=== PATIENT | female | born 1950 | race Caucasian/White ===

== ENCOUNTER 2018-08-03 23:15 | Inpatient (IN) | payer MEDICARE, MEDICAID ==
--- NOTE | 2018-08-04 00:26 | ED ---
Lower Extremity - HPI Summary HPI Summary: This patient is a 67 year old F presenting to [facility] accompanied by a woman with a chief complaint of worsening, bilateral, chronic LE edema since earlier today. Patient reports SOB with minimal exertion, purple lips, and weakness. Patient denies CP, abd pain, cough, fever, or chills.Pt uses a cane to ambulate normally, but it was more difficult today. The pt does not use oxygen at home. Pt went to a health insurance specialist a few years ago that showed relatively normal results. Pt does not take medication for her diabetes. PMHX leg blood clots, HTN , Diabetes. No PMHx asthma, emphysema. No SHx tobacco use. FHX leg tumors and severe LE edema. RX Coumadin. 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 Onset/Duration: Weeks Pain Intensity: 0 Pain Scale Used: 0-10 Numeric Timing: Constant Associated Signs And Symptoms: Positive: Swelling, Weakness Aggravating Factor(s): Ambulation, Movement - Allergies/Home Medications Allergies/Adverse Reactions: Allergies Allergy/AdvReac Type Severity Reaction Status Date / Time No Known Allergies Allergy Verified 08/03/18 23:21 PMH/Surg Hx/FS Hx/Imm Hx Endocrine/Hematology History: Reports: Hx Diabetes Cardiovascular History: Reports: Hx Hypertension Denies: Hx Pacemaker/ICD Respiratory History: Denies: Hx Asthma Musculoskeletal History: Denies: Hx Osteoporosis Sensory History: Denies: Hx Hearing Aid Psychiatric History: Denies: Hx Panic Disorder - Cancer History Hx Chemotherapy: No Hx Radiation Therapy: No - Surgical History Surgery Procedure, Year, and Place: PARATHYROIDECTOMY/T&A Infectious Disease History: No Infectious Disease History: Denies: Traveled Outside the [place] in Last 30 Days - Family History Known Family History: Positive: Diabetes - Social History Alcohol Use: None Substance Use Type: Reports: None Smoking Status (MU): Never Smoked Tobacco Review of Systems Negative: Fever, Chills Negative: Chest Pain Positive: Shortness Of Breath. Negative: Cough Negative: Abdominal Pain Positive: Edema - LE Positive: Other - purple lips Positive: Weakness All Other Systems Reviewed And Are Negative: Yes Physical Exam - Summary Physical Exam Summary: Appearance: The patient is morbidly obese, lying on the bed Skin: Warm, dry. Chronic lymphedema of both legs, without signs of cellulitis Eyes: sclera anicteric, no conjunctival pallor ENT: mucous membranes moist, pharynx appears normal Neck: Supple, nontender Respiratory: Clear to auscultation, mild respiratory distress with tachypnea. Cardiovascular: Normal S1, S2. No murmurs. Normal distal pulses in tibial and radial bilaterally. Abdomen: Soft, nontender, normal active bowel sounds present Musculoskeletal: Normal, Strength/ROM Intact Neurological: A&Ox3, awake and alert, mentation is normal, speech is fluent and appropriate Psychiatric: affect is normal, does not appear anxious or depressed Triage Information Reviewed: Yes Vital Signs On Initial Exam: Initial Vitals Temp Pulse Resp BP Pulse Ox 98.5 F 111 32 122/57 88 08/03/18 23:18 08/03/18 23:18 08/03/18 23:18 08/03/18 23:18 08/03/18 23:18 Vital Signs Reviewed: Yes Diagnostics - Vital Signs Vital Signs Temp Pulse Resp BP Pulse Ox 08/04/18 00:10 98 26 122/68 94 08/03/18 23:18 98.5 F 111 32 122/57 88 - Laboratory Result Diagrams: 08/04/18 00:22 08/04/18 00:22 Lab Statement: Any lab studies that have been ordered have been reviewed, and results considered in the medical decision making process. - Radiology CXR Radiology Interpretation Completed By: ED Physician Summary of Radiographic Findings: small bilateral pleural effusions, minor vascular congestion, pending official report - EKG 00:32 Cardiac Rate: NL - 85 EKG Rhythm: Sinus Rhythm Summary of EKG Findings: P waves, QRS complex, and T waves are within normal limits, T waves and intervals are normal, no ischemic changes Lower Extremity Course/Dx - Course Course Of Treatment: This patient is a 67 year old F presenting to [facility] accompanied by a woman with a chief complaint of worsening, bilateral, chronic LE edema since earlier today. Patient reports SOB with minimal exertion, purple lips, and weakness. Patient denies CP, abd pain, cough, fever, or chills. An EKG reveals NSR at 85 BPM, P waves, QRS complex, and T waves are within normal limits, T waves and intervals are normal, no ischemic changes. This is a normal EKG. CXR reveals, per ED physician, small bilateral pleural effusions, minor vascular congestion, pending official report. Test results with no significant abnormalities except for lactic acid 2.7 H. We discussed patient care with Dr. Haile and they recommended admission. Patient will be admitted. The patient is agreeable with this plan. - Diagnoses Provider Diagnoses: CHF (congestive heart failure) - Physician Notifications Discussed Care Of Patient With: Sarah Haile Time Discussed With Above Provider: 01:01 Instructed by Provider To: Admit As Inpatient Discharge - Sign-Out/Discharge Documenting (check all that apply): Patient Departure - admission - Discharge Plan Condition: Stable Disposition: ADMITTED TO [facility] - Billing Disposition and Condition Condition: STABLE Disposition: Admitted to [facility] - Attestation Statements Document Initiated by Josafat: Yes Documenting Scribe: Arslan Gupta Provider For Whom Josafat is Documenting (Include Credential): Filemon Us MD Scribe Attestation: Arslan Lima scribed for Filemon Us MD on 08/04/18 at 0356. Scribe Documentation Reviewed: Yes Provider Attestation: The documentation as recorded by the Arslan giron accurately reflects the service I personally performed and the decisions made by Filemon smith MD Status of Scribe Document: Viewed
[2018-08-04 00:45] LABS: ABS Basophils 0.1 10^3/ul (0-0.2); ABS Eosinophils 0 10^3/ul (0-0.6); ABS Lymphocytes 0.8 10^3/ul (1.0-4.8); ABS Monocytes 0.6 10^3/ul (0-0.8); ABS Neutrophils 9.8 10^3/ul (1.5-7.7); ABS Nucleated RBC 0 10^3/ul; Eosinophil % 0.1 %; Hematocrit 39 % (35-47); Hemoglobin 12.8 g/dl (12.0-16.0); Lymphocyte % 6.9 %; Mean Corpuscular HGB Conc 33 g/dl (31-36); Mean Corpuscular Hemoglobin 28 pg (27-31); Mean Corpuscular Volume 84 fL (80-97); Mean Platelet Volume 7.6 fL (7.4-10.4); Nucleated Red Blood Cells % 0.3; Platelet Count 311 10^3/ul (150-450); Red Blood Count 4.61 10^6/ul (4.00-5.40); Red Cell Distribution Width 17 % (10.5-15); White Blood Count 11.3 10^3/ul (3.5-10.8)
[2018-08-04 00:47] LABS: INR 2.22 (0.77-1.02)
[2018-08-04 00:56] LABS: EGFR Non-African American 52.4 (>60)
[2018-08-04] MEDS ORDERED: Senna TAB PO PRN (01:34)
[2018-08-04] MEDS ORDERED: Al Hydrox/Mg Hydrox/Simet LIQ* 30 ML UDC PO PRN (01:34)
[2018-08-04] MEDS ORDERED: Ondansetron INJ* 2 MG/ML VIAL IV PRN (01:34)
[2018-08-04] MEDS ORDERED: Docusate CAP* 100 MG PO PRN (01:34)
[2018-08-04] MEDS ORDERED: Acetaminophen TAB* 325 MG PO PRN (01:34)
[2018-08-04] MEDS ORDERED: Furosemide IV* 10 MG/ML VIAL (40 MG) IV ONE ×2 (01:37→13:35)
[2018-08-04] MEDS ORDERED: Dextrose 50% Syringe 50 ML* 25 GM/50 ML SYRINGE IV PUSH PRN (01:39)
[2018-08-04] MEDS: Insulin LISPRO* 1 UNITS UNIT SUBCUT SCH ×4 (08:03→17:47)
[2018-08-04] MEDS ORDERED: Metoprolol Tartrate TAB* 25 MG PO SCH (09:00)
[2018-08-04] MEDS ORDERED: Metoprolol Succinate XL TAB* 25 MG PO ONE (09:47)
--- NOTE | 2018-08-04 09:51 | HP ---
CC: Dr. Nicolas Jolly.* HISTORY AND PHYSICAL: DATE OF ADMISSION: 08/04/18. TIME OF EVALUATION: 0100. PRIMARY CARE PHYSICIAN: Dr. Nicolas Jolly CHIEF COMPLAINT: Shortness of breath and difficulty ambulating. HISTORY OF PRESENT ILLNESS: This is a 67-year-old female with a past medical history of morbid obesity, chronic lower extremity lymphedema, who presents to the emergency room with difficulty ambulating and worsening shortness of breath. The patient states she normally ambulates with a cane. Today, she had significant difficulty ambulating due to weakness and shortness of breath. She has had dyspnea on exertion for several months. It seems to be getting worse. Her [id number] lives with her and helps take care of her and she has noticed that her shortness of breath seems to have gotten worse especially today. She noticed that her lips were blue. It seems that she can only walk 20 feet before she gets short of breath. She denies any shortness of breath at rest. She denies any coughing, no chest pain. She has difficulty lying flat. She states she is not on oxygen at home. No nausea, vomiting, diarrhea. No chest pain. No fevers or chills. No recent changes in her medications. She states she has gained about 20 pounds over the past year. Otherwise, review of systems is negative. In the emergency room, the patient had labs, imaging and was referred to the hospitalist service for further evaluation. PAST MEDICAL HISTORY: 1. Morbid obesity. 2. Chronic lower extremity lymphedema. 3. Diabetes. 4. History of DVT. 5. Hypertension. 6. Hypothyroidism 7. Hyperlipidemia. 8. Schizophrenia. MEDICATIONS: The patient is not sure what she takes; what she does know is: 1. Coumadin 5 mg p.o. daily. 2. Risperidone 3 mg at bedtime. 3. Synthroid. 4. Atorvastatin. 5. Metoprolol. ALLERGIES: No known drug allergies. FAMILY HISTORY: Her mother is alive, 96, resides at [facility]. Her father at age 86. SOCIAL HISTORY: The patient lives with her [id number], Mansoor Ac, phone number [phone]. She is also her healthcare proxy who helps take care of her. No history of smoking, alcohol, or illicit drug use. 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 Code status is full code. REVIEW OF SYSTEMS: A 14-point review of systems as mentioned in the HPI, otherwise negative. PHYSICAL EXAMINATION GENERAL: No acute distress, some intermittent conversational dyspnea. Sister- in- law is at the bedside. VITAL SIGNS: Temp is 98.5, pulse rate 98, respiratory rate 26, oxygen saturation 94% on 3 L, blood pressure 122/68. HEENT: Head normocephalic. Pupils are equal and reactive, anicteric. Oropharynx: Mucous membranes are moist. NECK: Supple. No lymphadenopathy. RESPIRATORY: Diminished breath sounds. Bilateral expiratory wheezing, tachypnea with some mild increased work of breathing. CARDIAC: Tachycardia with soft systolic murmur heard throughout. ABDOMEN: Morbidly obese, nontender. EXTREMITIES: She has chronic lower extremity lymphedema, distant pulses. NEUROLOGIC: Alert and oriented x3. No gross focal neurologic deficits. DIAGNOSTIC STUDIES/LAB DATA: White count 11.3, hemoglobin 12.8, hematocrit 39 , platelets 311. INR is 2.22. D-dimer is 281. Sodium 135, potassium 3.7, chloride 101, bicarb 25, BUN 19, creatinine 1.05, glucose 169. Lactic acid 2.7. Troponin is 0.01. RADIOGRAPHIC DATA: EKG shows normal sinus rhythm with PVC present. Chest x-ray , no comparison but appears to be increased prominent interstitial edema. ASSESSMENT: A 67-year-old female with a past medical history of diabetes, morbid obesity, chronic lower extremity edema who has had difficulty ambulating and worsening shortness of breath. 1. Shortness of breath. Assessment: I suspect the patient has acute decompensated congestive heart failure. She states she had an echo done in the spring, but was not sure what the report showed. Chest x-ray is concerning for congestive heart failure and does have some wheezing on exam. I do not think this is chronic obstructive pulmonary disease. Plan: We will give her a dose of Lasix; trend her troponin; check her lipid panel; continue her beta judit, I do not know the dose, will start on a low dose; follow up on her med rec and monitor her I's and O's and daily weights and see if she clinically improves with her diuresis. 2. Difficulty ambulating. Assessment: I suspect this is multifactorial with her dyspnea, her morbid obesity, and her chronic lower extremity edema. I talked with her about her home environment. It sounds like they want to get more services to come into the home, VNS versus possible assisted living, although they are concerned they cannot afford it. Plan: We will put in PT consult. She may need to use a walker instead of a cane and put in social work to help with additional services in the house. 3. Chronic medical problems. History of deep venous thrombosis, on Coumadin. She is therapeutic. We will resume her Coumadin. I do not think her shortness of breath is from a pulmonary embolism as she is therapeutic and her D-dimer is minimally elevated. If her further workup is unremarkable or suggestive of pulmonary embolism, I would recommend getting a CT, at this time, it does not appear indicated. 4. History of schizophrenia. Continue risperidone. 5. Need to get her med rec and order her medications accordingly. 6. Fluids, electrolytes, nutrition: Diabetic diet. We will place her on a lispro sliding scale and check her hemoglobin A1c. 7. DVT prophylaxis: The patient scores high risk. She is on Coumadin. 8. Code status: Full code. PATIENT TIME: Greater than 50 minutes spent doing the history and physical, more than half the time spent in direct patient contact. [id number]/CPS #: [id number] MTDD
[2018-08-04] MEDS: Levothyroxine TAB* 100 MCG TAB PO SCH (10:34)
--- NOTE | 2018-08-04 14:20 | PN ---
Subjective Date of Service: 08/04/18 Interval History: Pt had been SOB for several months now. Remembers that she was placed on Lasix, but her prescription "run out" about 2 months ago. Lives with a roommate. Has had problems with ambulation due to leg edema and CRESPO Objective Active Medications: Acetaminophen (Tylenol Tab*) 650 mg PO Q4H PRN PRN Reason: FEVER/PAIN Last Admin: 08/04/18 11:46 Dose: 650 mg Al Hydrox/Mg Hydrox/Simethicone (Maalox Plus*) 30 ml PO Q6H PRN PRN Reason: INDIGESTION Atorvastatin Calcium (Lipitor*) 40 mg PO QPM [facility] Dextrose (D50w Syringe 50 Ml*) 12.5 gm IV PUSH .FOR FS < 60 - SS PRN PRN Reason: FS < 60 Docusate Sodium (Colace Cap*) 100 mg PO BID PRN PRN Reason: CONSTIPATION Furosemide (Lasix Iv*) 60 mg IV 0800,1700 [facility] Insulin Human Lispro (Humalog*) 0 units SUBCUT AC [facility]; Protocol Last Admin: 08/04/18 13:00 Dose: 5 units Levothyroxine Sodium (Synthroid Tab*) 100 mcg PO DAILY [facility] Last Admin: 08/04/18 10:34 Dose: 100 mcg Metoprolol Succinate (Toprol Xl Tab*) 50 mg PO DAILY [facility] Nystatin (Nystatin Cream*) 1 applic TOPICAL BID PRN PRN Reason: RASH Ondansetron HCl (Zofran Inj*) 4 mg IV Q4H PRN PRN Reason: NAUSEA/VOMITING Risperidone (Risperdal*) 3 mg PO BEDTIME [facility] Senna (Senokot Tab*) 1 tab PO BID PRN PRN Reason: CONSTIPATION Warfarin Sodium (Coumadin Tab(*)) 2.5 mg PO 1700 [facility]; Protocol Vital Signs - 8 hr 08/04/18 08/04/18 08/04/18 07:30 08:00 08:01 Temperature 98.6 F Pulse Rate 76 85 Respiratory 16 20 Rate Blood Pressure 144/61 (mmHg) O2 Sat by Pulse 95 92 Oximetry 08/04/18 11:31 Temperature 100.7 F Pulse Rate 84 Respiratory 20 Rate Blood Pressure 158/81 (mmHg) O2 Sat by Pulse 92 Oximetry Oxygen Devices in Use Now: None Appearance: 67 yo morbitly obese F in nAD, AAOx3 Eyes: No Scleral Icterus, PERRLA Ears/Nose/Mouth/Throat: NL Teeth, Lips, Gums, Mucous Membranes Moist Neck: NL Appearance and Movements; NL JVP, Trachea Midline Respiratory: Symmetrical Chest Expansion and Respiratory Effort, - - faint bibasiliar crackles Cardiovascular: NL Sounds; No Murmurs; No JVD, RRR Abdominal: NL Sounds; No Tenderness; No Distention Lymphatic: No Cervical Adenopathy Extremities: No Clubbing, Cyanosis, - - +3 pedal and entire LE's edema Skin: No Rash or Ulcers, No Nodules or Sclerosis Neurological: Alert and Oriented x 3, NL Muscle Strength and Tone Result Diagrams: 08/04/18 00:22 08/04/18 00:22 Assess/Plan/Problems-Billing Assessment: 67 yo F with BMI 54, HTN, DVT (on Couamdin) and h/o leg edema presents with SOB and worsening leg swelling. - Patient Problems (1) Acute diastolic CHF (congestive heart failure) Comment: cont Lasix IV Echo pending cont daily weights (2) DM2 (diabetes mellitus, type 2) Comment: diet controlled (3) Hypothyroidism Comment: cont current synthroid. TSH 1.4 (4) Dyslipidemia Comment: cont lipitor (5) DVT prophylaxis Comment: INR 2.2 cont coumadin for h/o DVT (6) Schizo affective schizophrenia Comment: controled on Risperdal (7) Fever Comment: Temp 100.7 apart for SOB and edema , no other complaints. Check UA and Flu test Status and Disposition: inpatient, deconditioned. PT/OT ongoing, may need STR
[2018-08-04 14:31] LABS: Urine Appearance Clear; Urine Blood Negative (Negative); Urine Color Straw; Urine Ketones Negative (Negative); Urine Protein Negative (Negative); Urine Specific Gravity 1.005 (1.010-1.030); Urine Urobilinogen Negative (Negative)
--- NOTE | 2018-08-04 14:52 | ECHO ---
Patient: JEANNETTE WOODS [facility] Rec#: [id number] : 1950 Date: 08/04/2018 Age: 67y Height: 162.6 cm / 64.0 in Weight: 145.2 kg / 320.0 lbs Sex: F BSA: 2.4 Room[facility] Admit Date#: 08/04/2018 Type: Inpatient Referring: Sarah Haile Reading: Ryan Cristina DO Clamp Jig Assembler: Pratibha Staley RN RDCS CC: Nicolas Jolly MD Transthoracic Echocardiogram Indication: Shortness of breath BP: 141/65 HR: 82 Rhythm: NSR Findings History: HTN, DM, lower extremity edema, morbid obesity Technical Comments: The study quality is fair. The study is technically limited due to poor parasternal windows. The study is technically limited due to patient body habitus. The patient did not want Definity used for image enhancement. Left Ventricle: The left ventricular chamber size is normal. There is no left ventricular hypertrophy. There is normal left ventricular systolic function. The estimated ejection fraction is 60-65%. The assessment of diastolic function is non-diagnostic., discrepant data Left Atrium: The left atrium is mildly dilated. Right Ventricle: The right ventricle is mildly dilated. The right ventricular global systolic function is mildly reduced. Right Atrium: The right atrium is mildly dilated. Aortic Valve: The aortic valve structure is not well visualized. The aortic valve leaflets are mildly thickened. There is no evidence of aortic regurgitation. There is no evidence of aortic stenosis. Mitral Valve: The mitral valve leaflets are mildly thickened. There is a trace of mitral regurgitation. There is no evidence of mitral stenosis. Tricuspid Valve: The tricuspid valve structure is not well visualized. The tricuspid valve leaflets are normal. There is trace tricuspid regurgitation. Unable to estimate the right ventricular systolic pressure. There is no tricuspid stenosis. Pulmonic Valve: The pulmonic valve structure is not well visualized. Pericardium: There is no significant pericardial effusion. Aorta: The ascending aorta is not well visualized. The aortic arch is not well visualized. The aortic root is normal in size. Pulmonary Artery: The main pulmonary artery is not well visualized. Venous: The venous system is not well visualized. The inferior vena cava is not visualized. Conclusions The left ventricular chamber size is normal. There is normal left ventricular systolic function. There is no left ventricular hypertrophy. The estimated ejection fraction is 60-65%. The left atrium is mildly dilated. The right ventricle is mildly dilated. The right ventricular global systolic function is mildly reduced. There is trace tricuspid regurgitation. Unable to estimate the right ventricular systolic pressure. The study is technically limited due to patient body habitus. The patient did not want Definity used for image enhancement. There is abnormal septal "bounce" - consider conduction system disease vs. RV pressure/volume overload Compared to prior study from 03/2018, RV now appears mildly dilated/dysfunctional Measurements Name Value Normal Range RVDdMajor (2D) 3.5 cm (2.2 - 4.4) RAd ISD 4CH 5 cm (3.4 - 4.9) RA (A4C)W 4.1 cm (2.9 - 4.6) IVSd (2D) 1 cm (0.6 - 1) LVPWd (2D) 1 cm (0.6 - 1) LVIDd (2D) 5.3 cm (3.6 - 5.4) LVIDs (2D) 4.2 cm - LV FS (2D) 21 % (25 - 45) Aortic Annulus 2.2 cm (1.4 - 2.6) Ao root diameter (2D) 3.3 cm (2.1 - 3.5) LA dimension (AP) 2D 5.5 cm (2.3 - 3.8) LAd ISD 4CH 5.9 cm (2.9 - 5.3) LA ISD 4CH W 3.7 cm (2.5 - 4.5) Name Value Normal Range LA ESV SP 4CH (A/L) 45 ml - LA ESV SP 2CH (A/L) 58 ml - LA ESV BP (A/L) 52 ml - LA ESV BP (A/L) index 21.6 ml/m2 - LA ESV SP 4CH (MOD) 43 ml - LA ESV SP 2CH (MOD) 56 ml - Name Value Normal Range MV E-wave Vmax 0.59 m/sec - MV deceleration time 275 msec - MV A-wave Vmax 0.81 m/sec - MV E:A ratio 0.73 ratio - LV septal e' Vmax 0.11 m/sec - LV lateral e' Vmax 0.13 m/sec - LV E:e' septal ratio 5.4 ratio - LV E:e' lateral ratio 4.5 ratio - Name Value Normal Range AV Vmax 2 m/sec - AV VTI 39.4 cm - AV peak gradient 15.5 mmHg - AV mean gradient 10 mmHg - LVOT diameter 2.2 cm - LVOT Vmax 1.4 m/sec - LVOT VTI 28.4 cm - LVOT peak gradient 8 mmHg - LVOT mean gradient 5 mmHg - CONSTANTINE (continuity Vmax) 2.7 cm2 - CONSTANTINE (continuity VTI) 2.7 cm2 - Name Value Normal Range PV Vmax 0.94 m/sec -
[2018-08-04] MEDS ORDERED: Warfarin TAB(*) 5 MG PO SCH (17:00)
[2018-08-04] MEDS ORDERED: Warfarin TAB(*) 2.5 MG PO SCH (17:00)
[2018-08-04] MEDS: Furosemide IV* 10 MG/ML 10 ML VIAL (100 MG) IV SCH (17:46)
[2018-08-04] MEDS: Atorvastatin* 40 MG TAB PO SCH (17:47)
[2018-08-04] MEDS: risperiDONE TAB* 3 MG PO SCH (20:32)
[2018-08-04] MEDS: Nystatin CREAM* 30 GM TOPICAL PRN (20:37)
[2018-08-05 06:21] LABS: INR 1.82 (0.77-1.02)
[2018-08-05] MEDS: Metoprolol Succinate XL TAB* 50 MG PO SCH (07:45)
[2018-08-05] MEDS: Furosemide IV* 10 MG/ML 10 ML VIAL (100 MG) IV SCH ×2 (07:45→17:49)
[2018-08-05] MEDS: Levothyroxine TAB* 100 MCG TAB PO SCH (07:45)
[2018-08-05 08:39] LABS: EGFR Non-African American 64.3 (>60)
[2018-08-05] MEDS: Insulin LISPRO* 1 UNITS UNIT SUBCUT SCH ×3 (09:39→17:49)
--- NOTE | 2018-08-05 13:30 | PN ---
Subjective Date of Service: 08/05/18 Interval History: Pt still has CRESPO. Leg edema still present. afebrile Objective Active Medications: Acetaminophen (Tylenol Tab*) 650 mg PO Q4H PRN PRN Reason: FEVER/PAIN Last Admin: 08/04/18 11:46 Dose: 650 mg Al Hydrox/Mg Hydrox/Simethicone (Maalox Plus*) 30 ml PO Q6H PRN PRN Reason: INDIGESTION Atorvastatin Calcium (Lipitor*) 40 mg PO QPM [facility] Last Admin: 08/04/18 17:47 Dose: 40 mg Dextrose (D50w Syringe 50 Ml*) 12.5 gm IV PUSH .FOR FS < 60 - SS PRN PRN Reason: FS < 60 Docusate Sodium (Colace Cap*) 100 mg PO BID PRN PRN Reason: CONSTIPATION Furosemide (Lasix Iv*) 60 mg IV 0800,1700 [facility] Last Admin: 08/05/18 07:45 Dose: 60 mg Insulin Human Lispro (Humalog*) 0 units SUBCUT [facility]; Protocol Last Admin: 08/05/18 09:39 Dose: 2 units Levothyroxine Sodium (Synthroid Tab*) 100 mcg PO DAILY [facility] Last Admin: 08/05/18 07:45 Dose: 100 mcg Metoprolol Succinate (Toprol Xl Tab*) 50 mg PO DAILY [facility] Last Admin: 08/05/18 07:45 Dose: 50 mg Nystatin (Nystatin Cream*) 1 applic TOPICAL BID PRN PRN Reason: RASH Last Admin: 08/04/18 20:37 Dose: 1 applic Ondansetron HCl (Zofran Inj*) 4 mg IV Q4H PRN PRN Reason: NAUSEA/VOMITING Potassium Chloride (Klor Con Er Tab*) 20 meq PO BID [facility] Risperidone (Risperdal*) 3 mg PO BEDTIME [facility] Last Admin: 08/04/18 20:32 Dose: 3 mg Senna (Senokot Tab*) 1 tab PO BID PRN PRN Reason: CONSTIPATION Warfarin Sodium (Coumadin Tab(*)) 3 mg PO 1700 [facility]; Protocol Vital Signs - 8 hr 08/05/18 08/05/18 08/05/18 07:22 07:48 11:20 Temperature 98.3 F 98.7 F Pulse Rate 77 78 Respiratory 20 22 20 Rate Blood Pressure 126/69 111/66 (mmHg) O2 Sat by Pulse 94 95 Oximetry Oxygen Devices in Use Now: Nasal Cannula Appearance: 67 yo morbitly obese F in NAD, AAOx3 Eyes: No Scleral Icterus, PERRLA Ears/Nose/Mouth/Throat: NL Teeth, Lips, Gums, Mucous Membranes Moist Neck: NL Appearance and Movements; NL JVP, Trachea Midline Respiratory: Symmetrical Chest Expansion and Respiratory Effort, - - crackles at b/l bases Cardiovascular: NL Sounds; No Murmurs; No JVD, RRR Abdominal: NL Sounds; No Tenderness; No Distention Lymphatic: No Cervical Adenopathy Extremities: No Clubbing, Cyanosis, - - large b/l leg lymphoedema -unchanged Skin: No Nodules or Sclerosis Neurological: Alert and Oriented x 3, NL Muscle Strength and Tone Result Diagrams: 08/04/18 00:22 08/05/18 06:03 Microbiology and Other Data: Microbiology 08/04/18 13:14 Influenza Types A,B Antigen - Final Nasal Specimen received for Influenza A/B Molecular testing Assess/Plan/Problems-Billing Assessment: 67 yo F with BMI 54, HTN, DVT (on Couamdin) and h/o leg edema presents with SOB and worsening leg swelling. - Patient Problems (1) Acute diastolic CHF (congestive heart failure) Comment: cont Lasix IV Echo shows EF 55% and mild R systolic function reduced. cont daily weights-today down from 320 to 312lbs (2) DM2 (diabetes mellitus, type 2) Comment: diet controlled (3) Hypothyroidism Comment: cont current synthroid. TSH 1.4 (4) Dyslipidemia Comment: cont lipitor (5) DVT prophylaxis Comment: INR 1.8 cont coumadin ( increased from 2.5 to 3 mg today ) for h/o DVT (6) Schizo affective schizophrenia Comment: controled on Risperdal (7) Fever Comment: Temp 100.7-on 08/04/18-so far no recurrence apart for SOB and edema , no other complaints. UA WNL and Flu test neg Status and Disposition: inpatient, deconditioned. PT/OT ongoing, will STR
[2018-08-05] MEDS: Potassium Chlor TAB* 20 MEQ TAB.ER PO SCH ×2 (13:39→20:59)
[2018-08-05] MEDS ORDERED: Warfarin TAB(*) 2.5 MG PO SCH (17:00)
[2018-08-05] MEDS: Atorvastatin* 40 MG TAB PO SCH (17:49)
[2018-08-05] MEDS ORDERED: Warfarin TAB(*) 3 MG PO SCH (18:05)
[2018-08-05] MEDS: risperiDONE TAB* 3 MG PO SCH (20:59)
[2018-08-05] MEDS: Nystatin CREAM* 30 GM TOPICAL PRN (21:23)
[2018-08-06 06:15] LABS: ABS Basophils 0.1 10^3/ul (0-0.2); ABS Eosinophils 0.1 10^3/ul (0-0.6); ABS Lymphocytes 1.3 10^3/ul (1.0-4.8); ABS Monocytes 0.9 10^3/ul (0-0.8); ABS Neutrophils 4.5 10^3/ul (1.5-7.7); ABS Nucleated RBC 0 10^3/ul; Hematocrit 36 % (35-47); Hemoglobin 12.1 g/dl (12.0-16.0); Lymphocyte % 18.8 %; Mean Corpuscular HGB Conc 34 g/dl (31-36); Mean Corpuscular Hemoglobin 28 pg (27-31); Mean Corpuscular Volume 84 fL (80-97); Mean Platelet Volume 7.5 fL (7.4-10.4); Nucleated Red Blood Cells % 0.2; Platelet Count 275 10^3/ul (150-450); Red Blood Count 4.33 10^6/ul (4.00-5.40); Red Cell Distribution Width 17 % (10.5-15); White Blood Count 6.8 10^3/ul (3.5-10.8)
[2018-08-06 06:22] LABS: INR 1.48 (0.77-1.02)
[2018-08-06 06:33] LABS: EGFR Non-African American 45.8 (>60)
[2018-08-06] MEDS: Levothyroxine TAB* 100 MCG TAB PO SCH (07:50)
[2018-08-06] MEDS: Furosemide IV* 10 MG/ML 10 ML VIAL (100 MG) IV SCH (07:50)
[2018-08-06] MEDS: Potassium Chlor TAB* 20 MEQ TAB.ER PO SCH ×2 (07:50→20:44)
[2018-08-06] MEDS: Metoprolol Succinate XL TAB* 50 MG PO SCH (07:50)
[2018-08-06] MEDS: Insulin LISPRO* 1 UNITS UNIT SUBCUT SCH ×3 (09:46→17:50)
[2018-08-06] MEDS ORDERED: Magnesium Sulfate 1 GM IV* 1 GM/100 ML BAG IV ONE (13:43)
--- NOTE | 2018-08-06 16:46 | PN ---
Subjective Date of Service: 08/06/18 Interval History: Pt denies SOB, cough, chest pain, abdominal pain, fevers chills. Wanting 2L net postive 1340 but recorded weight down more than a 1.6kg. 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 Per RN amotivational at home in regard to self care cleaning, washes once a week. Her mother lives at [facility], she does not. Objective Active Medications: Acetaminophen (Tylenol Tab*) 650 mg PO Q4H PRN PRN Reason: FEVER/PAIN Last Admin: 08/04/18 11:46 Dose: 650 mg Al Hydrox/Mg Hydrox/Simethicone (Maalox Plus*) 30 ml PO Q6H PRN PRN Reason: INDIGESTION Atorvastatin Calcium (Lipitor*) 40 mg PO QPM [facility] Last Admin: 08/05/18 17:49 Dose: 40 mg Dextrose (D50w Syringe 50 Ml*) 12.5 gm IV PUSH .FOR FS < 60 - SS PRN PRN Reason: FS < 60 Docusate Sodium (Colace Cap*) 100 mg PO BID PRN PRN Reason: CONSTIPATION Furosemide (Lasix Iv*) 60 mg IV 0800,1700 [facility] Last Admin: 08/06/18 07:50 Dose: 60 mg Insulin Human Lispro (Humalog*) 0 units SUBCUT AC [facility]; Protocol Last Admin: 08/06/18 14:51 Dose: 2 units Levothyroxine Sodium (Synthroid Tab*) 100 mcg PO DAILY [facility] Last Admin: 08/06/18 07:50 Dose: 100 mcg Metoprolol Succinate (Toprol Xl Tab*) 50 mg PO DAILY [facility] Last Admin: 08/06/18 07:50 Dose: 50 mg Nystatin (Nystatin Cream*) 1 applic TOPICAL BID PRN PRN Reason: RASH Last Admin: 08/05/18 21:23 Dose: 1 applic Ondansetron HCl (Zofran Inj*) 4 mg IV Q4H PRN PRN Reason: NAUSEA/VOMITING Potassium Chloride (Klor Con Er Tab*) 20 meq PO BID [facility] Last Admin: 08/06/18 07:50 Dose: 20 meq Risperidone (Risperdal*) 3 mg PO BEDTIME [facility] Last Admin: 08/05/18 20:59 Dose: 3 mg Senna (Senokot Tab*) 1 tab PO BID PRN PRN Reason: CONSTIPATION Warfarin Sodium (Coumadin Tab(*)) 3 mg PO 1700 [facility]; Protocol Last Admin: 08/05/18 18:08 Dose: 3 mg Vital Signs - 8 hr 08/06/18 08/06/18 11:18 16:39 Temperature 98.5 F 97.9 F Pulse Rate 72 63 Respiratory 24 18 Rate Blood Pressure 106/64 99/53 (mmHg) O2 Sat by Pulse 93 96 Oximetry Oxygen Devices in Use Now: Nasal Cannula Appearance: NAD, sitting in chair. Eyes: No Scleral Icterus Ears/Nose/Mouth/Throat: NL Teeth, Lips, Gums, Mucous Membranes Moist Neck: NL Appearance and Movements; NL JVP, Trachea Midline Respiratory: Symmetrical Chest Expansion and Respiratory Effort, Clear to Auscultation Cardiovascular: NL Sounds; No Murmurs; No JVD, RRR Abdominal: - - morbidly obese Extremities: - - lymphademy with nonpitting edema b/l legs Skin: - - behind left knee wrapped gauze. Neurological: Alert and Oriented x 3, NL Muscle Strength and Tone Nutrition: Taking PO's Result Diagrams: 08/06/18 05:49 08/06/18 05:49 Additional Lab and Data: Laboratory Results - last 24 hr 08/06/18 08/06/18 08/06/18 05:49 05:49 05:49 WBC 6.8 RBC 4.33 Hgb 12.1 Hct 36 MCV 84 MCH 28 MCHC 34 RDW 17 H Plt Count 275 MPV 7.5 Neut % (Auto) 65.7 Lymph % (Auto) 18.8 [place] % (Auto) 12.5 Eos % (Auto) 2.0 Baso % (Auto) 1.0 Absolute Neuts (auto) 4.5 Absolute Lymphs (auto) 1.3 Absolute Monos (auto) 0.9 H Absolute Eos (auto) 0.1 Absolute Basos (auto) 0.1 Absolute Nucleated RBC 0 Nucleated RBC % 0.2 INR (Anticoag Therapy) 1.48 H Sodium 137 Potassium 3.7 Chloride 101 Carbon Dioxide 29 Anion Gap 7 BUN 28 H Creatinine 1.18 H Est GFR ( Amer) 55.5 Est GFR (Non-Af Amer) 45.8 BUN/Creatinine Ratio 23.7 H Glucose 116 H POC Glucose (mg/dL) Calcium 8.6 Magnesium 1.9 08/06/18 08/06/18 07:53 11:42 WBC RBC Hgb Hct MCV MCH MCHC RDW Plt Count MPV Neut % (Auto) Lymph % (Auto) [place] % (Auto) Eos % (Auto) Baso % (Auto) Absolute Neuts (auto) Absolute Lymphs (auto) Absolute Monos (auto) Absolute Eos (auto) Absolute Basos (auto) Absolute Nucleated RBC Nucleated RBC % INR (Anticoag Therapy) Sodium Potassium Chloride Carbon Dioxide Anion Gap BUN Creatinine Est GFR ( Amer) Est GFR (Non-Af Amer) BUN/Creatinine Ratio Glucose POC Glucose (mg/dL) 114 H 97 Calcium Magnesium Microbiology and Other Data: Microbiology 08/04/18 13:14 Nasal Influenza Types A,B Antigen - Final Specimen received for Influenza A/B Molecular testing Assess/Plan/Problems-Billing Assessment: 67 yo F with BMI 54, HTN, schizophrenia, 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 BNP 198. ECHO with nondiagnostic RV function, EF 60-65%, septal bounce. 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 decreased O2 requirements. dropping Lasix from 60mg IV BID to 60mg IV this AM and 40mg IV daily starting tomorrow. Echo shows EF 55% and mild R systolic function reduced. cont daily weights, falling. strict io (2) DM2 (diabetes mellitus, type 2) Current Visit: Yes Status: Acute Comment: diet controlled at home. A1C 6.1. on SSI by carb count here. (3) DVT prophylaxis Current Visit: Yes Status: Acute Code(s): RQI6592 - SNOMED Code(s): 457256110 Comment: INR 1.5 from 1.8 from 2.2, increae coumadin ( increased from 2.5 to 3 mg to 4mg today ) for h/o DVT (4) Dyslipidemia Current Visit: Yes Status: Acute Code(s): E78.5 - HYPERLIPIDEMIA, UNSPECIFIED SNOMED Code(s): 688155892 Comment: cont lipitor 40mg daily (5) Fever Current Visit: Yes Status: Acute Code(s): R50.9 - FEVER, UNSPECIFIED SNOMED Code(s): 947859628 Comment: resolved Temp 100.7-on 08/04/18- no recurrence did have initial Lactic acidosis and tachycardia and leukocytosis. Resolved w/o any abx apart for SOB and edema , no other complaints. UA WNL and Flu test neg (6) Hypothyroidism Current Visit: Yes Status: Acute Code(s): E03.9 - HYPOTHYROIDISM, UNSPECIFIED SNOMED Code(s): 86084767 Comment: cont current 100mcg synthroid. TSH 1.4 (7) Schizo affective schizophrenia Current Visit: Yes Status: Acute Code(s): F25.0 - SCHIZOAFFECTIVE DISORDER, BIPOLAR TYPE SNOMED Code(s): 433963993 Comment: controled on Risperdal Status and Disposition: inpatient, deconditioned. PT/OT ongoing, planned STR to [facility] 08/08.
[2018-08-06] MEDS ORDERED: Warfarin TAB(*) 4 MG PO SCH (17:00)
[2018-08-06] MEDS: Atorvastatin* 40 MG TAB PO SCH (17:02)
[2018-08-06] MEDS: risperiDONE TAB* 3 MG PO SCH (20:45)
[2018-08-06] MEDS: Nystatin CREAM* 30 GM TOPICAL PRN (22:57)
[2018-08-07 05:39] LABS: INR 1.27 (0.77-1.02)
[2018-08-07 05:48] LABS: EGFR Non-African American 64.3 (>60)
[2018-08-07] MEDS ORDERED: Furosemide IV* 10 MG/ML VIAL (40 MG) IV SCH (08:00)
[2018-08-07] MEDS: Levothyroxine TAB* 100 MCG TAB PO SCH (08:55)
[2018-08-07] MEDS: Metoprolol Succinate XL TAB* 50 MG PO SCH (08:55)
[2018-08-07] MEDS: Insulin LISPRO* 1 UNITS UNIT SUBCUT SCH ×3 (08:55→17:36)
[2018-08-07] MEDS: Potassium Chlor TAB* 20 MEQ TAB.ER PO SCH ×2 (08:56→20:26)
--- NOTE | 2018-08-07 14:13 | PN ---
Subjective Date of Service: 08/07/18 Interval History: INR fell again to 1.27 from 1.48 [employer] interrogated and outpatient INR log and some INR triages inspected : Pt was increased to 5mg x4 day and 7.5mg x 3 days back on 06/30 when INR fell to 1.7 2.3 on 07/06, 2/2 on 07/13. At some point told to return to 5mg daily. Fell to 1/ 8 on 07/20 and 1/7 on 07/27. H&P states 5mg daily, med rec by admitting RN states 2.5mg daily. without chest pain, SOB, abdominal pain, f/c/n/v. afebrile, hemodynamically stable. Objective Active Medications: Acetaminophen (Tylenol Tab*) 650 mg PO Q4H PRN PRN Reason: FEVER/PAIN Last Admin: 08/04/18 11:46 Dose: 650 mg Al Hydrox/Mg Hydrox/Simethicone (Maalox Plus*) 30 ml PO Q6H PRN PRN Reason: INDIGESTION Atorvastatin Calcium (Lipitor*) 40 mg PO QPM [facility] Last Admin: 08/06/18 17:02 Dose: 40 mg Dextrose (D50w Syringe 50 Ml*) 12.5 gm IV PUSH .FOR FS < 60 - SS PRN PRN Reason: FS < 60 Docusate Sodium (Colace Cap*) 100 mg PO BID PRN PRN Reason: CONSTIPATION Furosemide (Lasix Iv*) 40 mg IV 0800 [facility] Last Admin: 08/07/18 08:55 Dose: 40 mg Insulin Human Lispro (Humalog*) 0 units SUBCUT AC [facility]; Protocol Last Admin: 08/07/18 12:49 Dose: 6 units Levothyroxine Sodium (Synthroid Tab*) 100 mcg PO DAILY [facility] Last Admin: 08/07/18 08:55 Dose: 100 mcg Metoprolol Succinate (Toprol Xl Tab*) 50 mg PO DAILY [facility] Last Admin: 08/07/18 08:55 Dose: 50 mg Nystatin (Nystatin Cream*) 1 applic TOPICAL BID PRN PRN Reason: RASH Last Admin: 08/06/18 22:57 Dose: 1 applic Ondansetron HCl (Zofran Inj*) 4 mg IV Q4H PRN PRN Reason: NAUSEA/VOMITING Potassium Chloride (Klor Con Er Tab*) 20 meq PO BID [facility] Last Admin: 08/07/18 08:56 Dose: 20 meq Risperidone (Risperdal*) 3 mg PO BEDTIME [facility] Last Admin: 08/06/18 20:45 Dose: 3 mg Senna (Senokot Tab*) 1 tab PO BID PRN PRN Reason: CONSTIPATION Warfarin Sodium (Coumadin Tab(*)) 10 mg PO 1700 [facility]; Protocol Stop: 08/07/18 17:01 Warfarin Sodium (Coumadin Tab(*)) 6 mg PO DAILY@1700 [facility]; Protocol Vital Signs - 8 hr 08/07/18 08/07/18 08/07/18 07:19 07:25 11:31 Temperature 98.5 F 98.2 F Pulse Rate 76 70 Respiratory 20 20 20 Rate Blood Pressure 108/56 129/61 (mmHg) O2 Sat by Pulse 96 94 Oximetry Oxygen Devices in Use Now: Nasal Cannula Appearance: NAD Eyes: No Scleral Icterus Ears/Nose/Mouth/Throat: NL Teeth, Lips, Gums Neck: NL Appearance and Movements; NL JVP Respiratory: Symmetrical Chest Expansion and Respiratory Effort, Clear to Auscultation Cardiovascular: NL Sounds; No Murmurs; No JVD, RRR Abdominal: NL Sounds; No Tenderness; No Distention, No Hepatosplenomegaly, - - morbidly obese. Extremities: - - chronic lymphadema, 2+ mostly non pitting in feet. Skin: - - left knee bandaged Neurological: Alert and Oriented x 3, NL Sensation Nutrition: Taking PO's Result Diagrams: 08/06/18 05:49 08/07/18 05:05 Additional Lab and Data: Laboratory Results - last 24 hr 08/06/18 08/07/18 08/07/18 17:04 05:05 05:05 INR (Anticoag Therapy) 1.27 H Sodium 137 Potassium 4.0 Chloride 102 Carbon Dioxide 28 Anion Gap 7 BUN 25 H Creatinine 0.88 Est GFR ( Amer) 77.8 Est GFR (Non-Af Amer) 64.3 BUN/Creatinine Ratio 28.4 H Glucose 114 H POC Glucose (mg/dL) 99 Calcium 9.1 08/07/18 08/07/18 07:15 11:19 INR (Anticoag Therapy) Sodium Potassium Chloride Carbon Dioxide Anion Gap BUN Creatinine Est GFR ( Amer) Est GFR (Non-Af Amer) BUN/Creatinine Ratio Glucose POC Glucose (mg/dL) 144 H 100 Calcium Microbiology and Other Data: Microbiology 08/04/18 13:14 Nasal Influenza Types A,B Antigen - Final Specimen received for Influenza A/B Molecular testing Assess/Plan/Problems-Billing Assessment: 67 yo F with BMI 54, HTN, schizophrenia, 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 BNP 198. ECHO with nondiagnostic RV function, EF 60-65%, septal bounce. 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 off oxygen switch to 60mg po daily starting tomorrow (from 40mg IV daily) Echo shows EF 55% and mild R systolic function reduced. cont daily weights, strict io (2) DM2 (diabetes mellitus, type 2) Current Visit: Yes Status: Acute Comment: diet controlled at home. A1C 6.1. on SSI by carb count here. (3) DVT prophylaxis Current Visit: Yes Status: Acute Code(s): IMY0779 - SNOMED Code(s): 361848587 Comment: INR 1.27 from 1.48 from 1.8 from 2.2, med rec'ed home coumadin dose was wrong at 2.5mg daily. She was 5mg daily and recently 5mg four days a week and 7.5mg three days a week (and seemed better therapeutic range with that). She has missed 5.5mg from home dose due to this error. I will give 10mg tonight then reduce to 6mg daily starting tomorrow. h/o multiple DVTs (every since parathyroid surgery decade ago she says). Likely fairly immobile at baseline given morbid obesity and amotivated in other aspects of self care (4) Dyslipidemia Current Visit: Yes Status: Acute Code(s): E78.5 - HYPERLIPIDEMIA, UNSPECIFIED SNOMED Code(s): 930575583 Comment: cont lipitor 40mg daily (5) Fever Current Visit: Yes Status: Acute Code(s): R50.9 - FEVER, UNSPECIFIED SNOMED Code(s): 400542455 Comment: resolved Temp 100.7-on 08/04/18- no recurrence did have initial Lactic acidosis and tachycardia and leukocytosis. Resolved w/o any abx apart for SOB and edema , no other complaints. UA WNL and Flu test neg (6) Hypothyroidism Current Visit: Yes Status: Acute Code(s): E03.9 - HYPOTHYROIDISM, UNSPECIFIED SNOMED Code(s): 56156576 Comment: cont current 100mcg synthroid. TSH 1.4 (7) Schizo affective schizophrenia Current Visit: Yes Status: Acute Code(s): F25.0 - SCHIZOAFFECTIVE DISORDER, BIPOLAR TYPE SNOMED Code(s): 818058068 Comment: controled on Risperdal Status and Disposition: inpatient, deconditioned. PT/OT ongoing, planned STR to [facility] [place] 08/08.
[2018-08-07] MEDS ORDERED: Warfarin TAB(*) 10 MG PO ONE (17:00)
[2018-08-07] MEDS: Atorvastatin* 40 MG TAB PO SCH (17:36)
[2018-08-07] MEDS: risperiDONE TAB* 3 MG PO SCH (20:26)
[2018-08-08 06:28] LABS: INR 1.42 (0.77-1.02)
[2018-08-08 06:36] LABS: EGFR Non-African American 70.7 (>60)
[2018-08-08] MEDS ORDERED: Furosemide TAB* 20 MG PO SCH (08:00)
[2018-08-08] MEDS: Nystatin CREAM* 30 GM TOPICAL PRN (09:25)
[2018-08-08] MEDS: Metoprolol Succinate XL TAB* 50 MG PO SCH (09:25)
[2018-08-08] MEDS: Potassium Chlor TAB* 20 MEQ TAB.ER PO SCH (09:25)
[2018-08-08] MEDS: Insulin LISPRO* 1 UNITS UNIT SUBCUT SCH ×2 (09:25→12:44)
[2018-08-08] MEDS: Levothyroxine TAB* 100 MCG TAB PO SCH (09:25)
[2018-08-08 12:07] VITALS: BP 149/87
--- NOTE | 2018-08-08 12:52 | DS ---
CC: Dr. Jolly; [facility].* DATE OF ADMISSION: 08/04/2018. DATE OF DISCHARGE: 08/08/2018. PRIMARY CARE PHYSICIAN: Dr. Jolly. DISPOSITION: The patient is being transferred to [facility] for continuation or rehab. DISCHARGE DIAGNOSES: 1. Acute diastolic CHF. 2. Bilateral lower extremity lymphedema. SECONDARY DIAGNOSES: 1. Morbid obesity with a BMI of 53. 2. History of bilateral lower extremity lymphedema. 3. Diabetes, diet controlled. 4. History of DVT. 5. Hypertension. 6. Hypothyroidism. 7. Hyperlipidemia. 8. Schizophrenia. MEDICATIONS AT DISCHARGE: 1. Lipitor 40 mg daily. 2. Synthroid 100 mcg daily. 3. Toprol XL 50 mg daily. 4. Nystatin cream one application to affected areas b.i.d. prn. 5. Risperdal 3 mg at bedtime. 6. Colace 100 mg b.i.d. 7. Furosemide 60 mg daily. 8. Potassium Chloride 20 mEq daily. 9. Coumadin 6 mg daily. LABORATORY DATA AND STUDIES PERFORMED DURING THE HOSPITAL STAY: INR on 2017 was 1.42. The patient Coumadin's was just increased prior to patient's discharge to 6 mg daily. INR time to be obtained on 08/10/2018. CBC on 08/06/2018: WBC 6.8, hemoglobin 12.1, hematocrit 36, platelets 275. Sodium 140, potassium 4.2, chloride 104, carbon dioxide 30, BUN 21, creatinine 0.81. Urinalysis was grossly unremarkable, obtained at admission. Liver function test obtained at admission were unremarkable. TSH at admission was 1.47. Cholesterol profile showed triglycerides 119, cholesterol 199, LDL of 120, and HDL of 55. Transthoracic echocardiogram obtained on 08/04/2018 showed the left ventricular chamber size is normal with normal left ventricular systolic function. EF of 60 to 65 percent. The right ventricle was mildly dilated. Global right ventricular systolic function mildly reduced. There was an abnormal septal cord "bounce," consider conduction system disease versus right ventricular pressure overload. "Compared to the study from March of 2018, RV now appears mildly dilated and dysfunction." Portable chest x-ray obtained on admission: Impression: "Findings suggestive of congestive heart failure." HOSPITALIZATION COURSE: Sandra Shearer is a 67-year-old female with a history of morbid obesity and bilateral leg lymphedema who presented complaining of worsening shortness of breath and worsening leg edema. The patient was diagnosed with acute diastolic CHF and diuresed. Over the course of her hospital stay, it became apparent that the patient is unable to ambulate and unable to go back home due to that. Physical Therapy and Occupational Therapy evaluated the patient and deemed her a good candidate for short-term rehabilitation. The patient is being placed at [facility] for short -term rehabilitation at the time of discharge. Her INR is subtherapeutic, but her Coumadin dosage was increased at the time of discharge and it is recommended for the patient's INR to be rechecked in a couple of days. Overall, the patient was placed on Furosemide which she was not at home on and potassium replacement at 20 mEq daily. It is recommended for the patient to have a basic metabolic panel drawn within the next one week after the patient's hospital stay. PHYSICAL EXAMINATION AT THE TIME OF DISCHARGE: General: The patient is a pleasant, 67-year-old female in no acute distress. Alert, awake, and oriented times three. Vital Signs: Blood pressure 144/72, heart rate 71 and regular, respiratory rate 16, oxygen saturation 94 percent on 2 liters of oxygen nasal cannula, temperature 98.2. HEENT: Head atraumatic, normocephalic. Eyes: Pupils equal and reactive to light and accommodation. Oropharynx is clear. Mucosa moist. Neck: Supple. No JVD noted, no bruits bilaterally. Cardiovascular: Regular rate and rhythm. No murmur. Respiratory: Faint bibasilar crackles, otherwise clear. Abdomen: Soft, nontender. Bowel sounds presented in all four quadrants. Extremities: There is significant lymphedema bilateral lower extremities from the level of the knees down, including bilateral feet. That has been grossly unchanged throughout the patient's stay, but may be slightly improved with Sigifredo bandages. On evaluation of the skin: No areas or rashes noted. Neuro: Speech clear. Cranial nerves II through XII grossly intact. Motor strength 5/5 bilaterally. Please note that this is a short summary of the patient's hospitalization. Please refer to further medical records for details. Approximately 40 minutes were spent on this patient's discharge. [id number]/[facility] #: [id number] [facility]
[2018-08-08] MEDS ORDERED: Warfarin TAB(*) 6 MG PO SCH (17:00)
== END 2018-08-08 13:13 | DRG 291 ==
LOC: ED 23:15 → MEDTELE 08-04 01:34
PROVIDERS: ADMIT Pediatrics; ATTEND Internal Medicine
DX: I11.0 Hypertensive heart disease with heart failure (principal); I50.31 Acute diastolic (congestive) heart failure; Z68.43 Body mass index [BMI] 50.0-59.9, adult; E87.2 Acidosis; E11.9 Type 2 diabetes mellitus without complications; E89.2 Postprocedural hypoparathyroidism; E66.01 Morbid (severe) obesity due to excess calories; I89.0 Lymphedema, not elsewhere classified; F25.0 Schizoaffective disorder, bipolar type; I49.3 Ventricular premature depolarization; E03.9 Hypothyroidism, unspecified; E78.5 Hyperlipidemia, unspecified; R00.0 Tachycardia, unspecified; D72.829 Elevated white blood cell count, unspecified; R50.9 Fever, unspecified; Z83.3 Family history of diabetes mellitus; Z86.718 Personal history of other venous thrombosis and embolism; Z79.01 Long term (current) use of anticoagulants
CPT/HCPCS: 36415; 71046; 80048; 80053; 80061; 81003; 83036; 83605; 83735; 83880; 84443; 84484; 85025; 85379; 85610; 86140; 93005; 93306; 99284; A9270-GY; G8978-GP-CK; G8979-GP-CI; G8987-GO-CK; G8988-GO-CI; J1940; J3475

== ENCOUNTER 2018-11-11 12:59 | Inpatient (IN) | payer MEDICARE, MEDICAID ==
[2018-11-11] MEDS ORDERED: NS 0.9% 1000 ML** 1,000 ML IV ONE (17:42)
[2018-11-11] MEDS ORDERED: Acetaminophen TAB* 325 MG PO ONE (17:44)
[2018-11-11 17:50] LABS: ABS Basophils 0.1 10^3/ul (0-0.2); ABS Eosinophils 0 10^3/ul (0-0.6); ABS Lymphocytes 1.2 10^3/ul (1.0-4.8); ABS Monocytes 1.4 10^3/ul (0-0.8); ABS Neutrophils 12.5 10^3/ul (1.5-7.7); ABS Nucleated RBC 0 10^3/ul; Eosinophil % 0 %; Hematocrit 36 % (35-47); Hemoglobin 11.7 g/dl (12.0-16.0); Lymphocyte % 8.1 %; Mean Corpuscular HGB Conc 33 g/dl (31-36); Mean Corpuscular Hemoglobin 28 pg (27-31); Mean Corpuscular Volume 87 fL (80-97); Mean Platelet Volume 7.6 fL (7.4-10.4); Nucleated Red Blood Cells % 0; Platelet Count 345 10^3/ul (150-450); Red Blood Count 4.13 10^6/ul (4.00-5.40); Red Cell Distribution Width 17 % (10.5-15); White Blood Count 15.2 10^3/ul (3.5-10.8)
--- NOTE | 2018-11-11 17:52 | ED ---
Skin Complaint - HPI Summary HPI Summary: 68-year-old female presents with rash for the past week. She states that the rash has been spreading up her left leg. She also notes some increased swelling. she has history of lymphedema. She has a history of blood clots. She is currently on Coumadin. She states she still able to ambulate with some difficulty. She denies any chest pain or shortness breath. Denies any fevers or chills. No cough. Denies any other symptoms. has not seen anyone about the rash. she is a diabetic. she has an open wound on the left ankle that is oozing. - History of Current Complaint Chief Complaint: EDExtremityLower Time Seen by Provider: 11/11/18 17:35 Stated Complaint: LEFT FOOT IS INFECTED PER PT FRIEND Pain Intensity: 4 - Additional Pertinent History Primary Care Physician: [id number] - Allergy/Home Medications Allergies/Adverse Reactions: Allergies Allergy/AdvReac Type Severity Reaction Status Date / Time Tetanus Vaccines and Toxoid Allergy Swelling Verified 11/11/18 13:11 PMH/Surg Hx/FS Hx/Imm Hx Endocrine/Hematology History: Reports: Hx Anticoagulant Therapy, Hx Diabetes, Hx Thyroid Disease Cardiovascular History: Reports: Hx Deep Vein Thrombosis, Hx Hypercholesterolemia, Hx Hypertension Denies: Hx Pacemaker/ICD Respiratory History: Denies: Hx Asthma Musculoskeletal History: Reports: Hx Arthritis - knees Denies: Hx Osteoporosis Sensory History: Reports: Hx Contacts or Glasses - Reading Denies: Hx Hearing Aid Opthamlomology History: Reports: Hx Contacts or Glasses - Reading Neurological History: Reports: Other Neuro Impairments/Disorders - Lack of coordination nfrom childhood Psychiatric History: Reports: Hx Anxiety, Hx Panic Disorder - Cancer History Hx Chemotherapy: No Hx Radiation Therapy: No - Surgical History Surgery Procedure, Year, and Place: PARATHYROIDECTOMY/T&A Infectious Disease History: No Infectious Disease History: Denies: Traveled Outside the [place] in Last 30 Days - Family History Known Family History: Positive: Diabetes - Social History Alcohol Use: None Substance Use Type: Reports: None Smoking Status (MU): Never Smoked Tobacco Review of Systems Positive: Fever Negative: Chest Pain Negative: Shortness Of Breath Positive: Rash All Other Systems Reviewed And Are Negative: Yes Physical Exam Triage Information Reviewed: Yes Vital Signs On Initial Exam: Initial Vitals Temp Pulse Resp BP Pulse Ox 100.4 F 100 20 163/78 92 11/11/18 13:09 11/11/18 13:09 11/11/18 13:09 11/11/18 13:09 11/11/18 13:09 Vital Signs Reviewed: Yes Appearance: Positive: Well-Appearing Skin: Positive: Warm, Dry, Other - erythema extending from top of left foot to left gómez with small open wound that is oozing on left leg Head/Face: Positive: Normal Head/Face Inspection Eyes: Positive: Normal, Conjunctiva Clear ENT: Positive: Pharynx normal Respiratory/Lung Sounds: Positive: Clear to Auscultation, Breath Sounds Present Cardiovascular: Positive: Normal, RRR Musculoskeletal: Positive: Strength/ROM Intact - left left, Edema Left - bilateral, Edema Right, Other - good pulses Neurological: Positive: Normal Psychiatric: Positive: Normal Diagnostics - Vital Signs Vital Signs Temp Pulse Resp BP Pulse Ox 11/11/18 15:06 101.6 F 88 20 157/60 97 11/11/18 13:09 100.4 F 100 20 163/78 92 - Laboratory Result Diagrams: 11/11/18 17:41 11/11/18 17:41 Lab Statement: Any lab studies that have been ordered have been reviewed, and results considered in the medical decision making process. - Radiology foot Radiology Interpretation Completed By: Radiologist Summary of Radiographic Findings: IMPRESSION: Soft tissue swelling. Diffuse osteopenia is noted. - Ultrasound No standard instances Ultrasound Interpretation Completed By: Radiologist Summary of Ultrasound Findings: IMPRESSION: 1. No acute findings. No evidence of deep vein thrombosis above the knee or in. the posterior tibial vein. Left peroneal vein was not visualized. 2. Study limited by body habitus. Course/Dx - Course Course Of Treatment: 68-year-old female presents with rash for the past week. She denies any fevers or chills but her vitals show that she has a fever. She states the rash has been spreading. She's been having more difficulty ambulating. She has history of lymphedema. On exam has erythema from the top of foot on the left gómez. Bilateral edema to lower extremities noted. wbc 15. crp elevated. lactic normal. gave dose of vanco. u/s no dvt seen. did not give all the fluids for sepsis although meets criteria as has lymphedema already present. discussed case with dr cueva who agrees to admit. - Differential Diagnoses - Skin Complaint Differential Diagnoses: Abscess, Cellulitis, Contact Dermatitis - Diagnoses Provider Diagnoses: Cellulitis of left lower leg, Sepsis Discharge - Sign-Out/Discharge Documenting (check all that apply): Patient Departure - Discharge Plan Condition: Stable Disposition: ADMITTED TO [facility] - Billing Disposition and Condition Condition: STABLE Disposition: Admitted to [facility]
[2018-11-11] MEDS ORDERED: Vancomycin(*) 1,000 MG VIAL IVPB SCH (18:00)
[2018-11-11 18:11] LABS: Albumin/Globulin Ratio 1.1 (1-3); BUN/Creatinine Ratio 20.8 (8-20); C Reactive Protein 273.36 mg/L (<8.01); Calcium 9.4 mg/dL (8.6-10.3); EGFR African American 90.5 (>60); EGFR Non-African American 74.8 (>60); Globulin 3.7 g/dL (2-4); Potassium 3.8 mmol/L (3.5-5.0); Total Bilirubin 0.8 mg/dL (0.2-1.0); Total Protein 7.7 g/dL (6.4-8.9)
[2018-11-11] MEDS ORDERED: Vancomycin(*) 2,000 MG in NS 0.9% 500 ML* 500 ML IVPB ONE (18:30)
[2018-11-11 18:56] LABS: INR 2.18 (0.77-1.02)
[2018-11-11] MEDS ORDERED: Docusate CAP* 100 MG PO PRN (19:48)
--- NOTE | 2018-11-11 22:07 | HP ---
CC: Dr. Calero. HISTORY AND PHYSICAL: DATE OF ADMISSION: 11/11/18 PRIMARY CARE PROVIDER: Dr. Calero. CHIEF COMPLAINT: Left lower extremity rash. HISTORY OF PRESENT ILLNESS: Ms. Shearer is a 68-year-old female with a history of morbid obesity, l ymphedema of the lower extremities, type 2 diabetes, hypertension, hypothyroidism, and schizophrenia, who presented to the emergency room with complaints of left lower extremity redness and pain. She s tates that the redness began on her left lower extremity approximately 2 weeks ago. She has noted th at it has gotten progressively worse. Over the last few days, she developed pain within the leg. Pa in is both at rest and with ambulation and bearing weight. She states the pain is what brought her t o the emergency room today. She states that there has been one area of drainage, though she is not v lora specific about this. She denies any fevers or shaking chills. Of note, the patient is a poor hi storian. PAST MEDICAL HISTORY: 1. Morbid obesity. 2. Lower extremity lymphedema. 3. Type 2 diabetes. 4. History of DVT. 5. Hypertension. 6. Hypothyroidism. 7. Hyperlipidemia. 8. Schizophrenia. MEDICATIONS: 1. Risperdal 3 mg p.o. at bedtime. 2. Coumadin 6 mg p.o. daily. 3. Lasix 60 mg p.o. daily. 4. Colace 100 mg p.o. b.i.d. p.r.n. constipation. 5. Lipitor 40 mg p.o. at bedtime. 6. Potassium chloride 20 mEq p.o. daily. 7. Nystatin cream 1 application topically twice daily p.r.n. nino intertrigo. 8. Metoprolol XL 50 mg p.o. daily. 9. Levothyroxine 100 mcg p.o. daily. ALLERGIES: TETANUS TOXOID. FAMILY HISTORY: The patient's mom is alive. She is 96. She lives at [place]. Her father is decea sed, he at the age of 86. SOCIAL HISTORY: The patient lives with her [id number] Mansoor Ac. She is also her health car e proxy. The patient is a lifelong nonsmoker. She does not drink alcohol. 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 She indicates that she likes to be a full code. REVIEW OF SYSTEMS: A complete 11-system review of systems is obtained, pertinent positives and negat sylvie are as per HPI and otherwise negative. PHYSICAL EXAMINATION GENERAL: The patient is a well-developed, morbidly obese, middle-aged female seen sitting up in the stretcher, in no acute distress. VITAL SIGNS: Blood pressure 150/80, pulse 93, respirations 20, temp 101.6, O2 sat 97% on room air. HEENT: Pupils are approximately 2 mm, they react down to 1 mm. Extraocular muscles are intact. Sara pharynx is clear. There is a slight white film on the patient's tongue. There is no submandibular, cervical, or supraclavicular adenopathy. The thyroid is not enlarged, though this is a difficult exa m as the patient has an obese neck. PULMONARY: Lungs are clear to auscultation anteriorly and at the lateral bases. CARDIAC: Normal S1 and S2. Regular rate and rhythm. I do not appreciate any murmurs. There is mar ked lymphedema changes to the bilateral lower extremities. ABDOMEN: Bowel sounds are present. Abdomen is obese, soft, nontender, and nondistended. MUSCULOSKELETAL: There is no cyanosis or clubbing of the digits. There is full active range of betsy on of the upper extremities. Lower extremity range of motion is somewhat limited due to the patient' s body habitus. SKIN: Warm. There are beefy-red skin changes to the left foot and lower leg. There is red streaking going up into the patient's groin via the medial thigh. There are no skin changes noted to the right lower extremity. There is a small area overlying the left lateral malleolus where there is scant am ount of serosanguineous drainage. I am unable to express any purulence, though the tissue beneath th is area is somewhat boggy, though it is unclear if this is because it is edematous. NEUROLOGIC: Cranial nerves II through XII are grossly intact. Sensation is intact to light touch th roughout. Strength is 5/5 and symmetric in both upper and lower extremities bilaterally. PSYCH: The patient is alert. She has a very flat affect. DIAGNOSTIC STUDIES/LAB DATA: WBC 15.2, hemoglobin 11.7, hematocrit 36, platelets 345, INR 2.18. So dium 136, potassium 3.8, chloride 100, CO2 of 25, BUN 16, creatinine of 0.77, glucose 126, lactic aci d 1.9, calcium 9.4, bilirubin 0.8, AST 11, ALT 10, alk phos 79, CRP 273.36. BNP 182. Albumin 4.0. EKG: No EKG. Left foot x-ray reveals soft tissue swelling and diffuse osteopenia. Venous Doppler of the left lowe r extremity reveals no acute findings. No evidence for DVT above the knee or in the posterior tibial vein. Left peroneal vein was not visualized. Study was limited due to the patient's body habitus. ASSESSMENT AND PLAN: Ms. Shearer is a 68-year-old female with a history of lower extremity lymphede ma, type 2 diabetes, morbid obesity, hypertension, and schizophrenia, who presents to the emergency r oom with left lower extremity redness and pain and is admitted for sepsis secondary to a left lower e xtremity cellulitis. 1. Sepsis secondary to left lower extremity cellulitis. The patient is septic by sepsis 2 criteria with mild tachycardia, fever, tachypnea, and elevated white blood cell count. By sepsis 3 criteria, she is not septic. The patient received 1 liter of IV fluids in the emergency room. She has been pr escribed vancomycin in the ER. I am going to change this to cephazolin as there is no reason to belie ve that she needs to be treated for MRSA right off the bat. I will obtain an ultrasound of the left ankle area to evaluate for underlying abscess. She will have Tylenol alone for pain at this point, t zelalem if pain becomes more severe we can consider adding p.r.n. tramadol. 2. Type 2 diabetes. The patient is not on any diabetes medication at home per the med list in the [facility] at this point. Her last hemoglobin A1c was 6.1% in July 2018. She will be on a heart he althy diet for now, but if we see that her blood sugars are increasing on daily labs, we can change t his to consistent carb diet. 3. Hypertension. The patient's blood pressure is moderately elevated at this point. For now, I am going to continue her usual home medication regimen and we will monitor her blood pressure. If we no te that the blood pressure remains moderately elevated, an additional agent such as amlodipine or lis inopril could be added. 4. History of DVT. The patient has a therapeutic INR on Coumadin. She will continue this. 5. Schizophrenia. Continue Risperdal. 6. DVT prophylaxis. According to the Adult Thrombosis Prophylaxis Risk Factor Assessment Guide, the patient has a total risk factor score of 8 making her the highest risk. She is already on Coumadin with a therapeutic INR and this will act as her DVT prophylaxis. Code status is full. TIME SPENT: Sixty five minutes was spent admitting this patient. [id number]/[facility] #: [id number]
[2018-11-11] MEDS: Nystatin CREAM* 30 GM TOPICAL SCH (22:13)
[2018-11-11] MEDS: ceFAZolin VIAL(*) 2 GM in NS 0.9% 100 ML* 100 ML IVPB SCH (22:13)
[2018-11-11] MEDS: risperiDONE TAB* 3 MG PO SCH (22:13)
[2018-11-12] MEDS: ceFAZolin VIAL(*) 2 GM in NS 0.9% 100 ML* 100 ML IVPB SCH ×3 (05:24→22:18)
[2018-11-12] MEDS ORDERED: Levothyroxine TAB* 100 MCG TAB PO SCH (06:00)
[2018-11-12 08:14] LABS: ABS Basophils 0.1 10^3/ul (0-0.2); ABS Eosinophils 0 10^3/ul (0-0.6); ABS Lymphocytes 0.8 10^3/ul (1.0-4.8); ABS Monocytes 1.1 10^3/ul (0-0.8); ABS Neutrophils 10.4 10^3/ul (1.5-7.7); ABS Nucleated RBC 0 10^3/ul; Eosinophil % 0.2 %; Hematocrit 32 % (35-47); Hemoglobin 10.5 g/dl (12.0-16.0); Lymphocyte % 6.8 %; Mean Corpuscular HGB Conc 33 g/dl (31-36); Mean Corpuscular Hemoglobin 28 pg (27-31); Mean Corpuscular Volume 86 fL (80-97); Mean Platelet Volume 7.4 fL (7.4-10.4); Nucleated Red Blood Cells % 0.1; Platelet Count 328 10^3/ul (150-450); Red Blood Count 3.74 10^6/ul (4.00-5.40); Red Cell Distribution Width 17 % (10.5-15); White Blood Count 12.4 10^3/ul (3.5-10.8)
[2018-11-12] MEDS: Potassium Chlor TAB* 20 MEQ TAB.ER PO SCH (09:27)
[2018-11-12] MEDS: Furosemide TAB* 20 MG PO SCH (09:27)
[2018-11-12] MEDS: Metoprolol Succinate XL TAB* 50 MG PO SCH (09:27)
[2018-11-12] MEDS: Nystatin CREAM* 30 GM TOPICAL SCH ×3 (09:30→22:18)
[2018-11-12 10:22] LABS: BUN/Creatinine Ratio 15.1 (8-20); Calcium 8.8 mg/dL (8.6-10.3); EGFR African American 96.2 (>60); EGFR Non-African American 79.5 (>60); Potassium 3.7 mmol/L (3.5-5.0)
[2018-11-12] MEDS: Acetaminophen TAB* 325 MG PO PRN ×2 (12:46→22:18)
[2018-11-12] MEDS: Atorvastatin* 40 MG TAB PO SCH (16:38)
[2018-11-12] MEDS ORDERED: Warfarin TAB(*) 6 MG PO SCH (17:00)
--- NOTE | 2018-11-12 18:09 | PN ---
Subjective Date of Service: 11/12/18 Interval History: Patient admitted overnight w/ cellulititis LLE. States she was able to walk on LT leg [employer]. Denies pain. Sees some drainage on bedsheets. Feels the redness is improving. Family History: Unchanged from Admission Social History: Unchanged from Admission Past Medical History: Unchanged from Admission Objective Active Medications: Acetaminophen (Tylenol Tab*) 650 mg PO Q4H PRN PRN Reason: PAIN Last Admin: 11/12/18 12:46 Dose: 650 mg Atorvastatin Calcium (Lipitor*) 40 mg PO QPM [facility] Last Admin: 11/12/18 16:38 Dose: 40 mg Docusate Sodium (Colace Cap*) 100 mg PO BID PRN PRN Reason: CONSTIPATION Furosemide (Lasix Tab*) 60 mg PO 0800 [facility] Last Admin: 11/12/18 09:27 Dose: 60 mg Cefazolin Sodium 2 gm/ Sodium (Chloride) 100 mls @ 200 mls/hr IVPB Q8H [facility] Last Admin: 11/12/18 12:46 Dose: 200 mls/hr Levothyroxine Sodium (Synthroid Tab*) 100 mcg PO 0600 [facility] Last Admin: 11/12/18 05:25 Dose: 100 mcg Metoprolol Succinate (Toprol Xl Tab*) 50 mg PO DAILY [facility] Last Admin: 11/12/18 09:27 Dose: 50 mg Nystatin (Nystatin Cream*) 1 applic TOPICAL TID [facility] Last Admin: 11/12/18 13:48 Dose: 1 applic Potassium Chloride (Klor Con Er Tab*) 20 meq PO DAILY [facility] Last Admin: 11/12/18 09:27 Dose: 20 meq Risperidone (Risperdal*) 3 mg PO BEDTIME [facility] Last Admin: 11/11/18 22:13 Dose: 3 mg Warfarin Sodium (Coumadin Tab(*)) 6 mg PO DAILY@1700 [facility]; Protocol Last Admin: 11/12/18 16:38 Dose: 6 mg Vital Signs - 8 hr 11/12/18 11:43 Temperature 38.3 C Pulse Rate 86 Respiratory 20 Rate Blood Pressure 134/68 (mmHg) O2 Sat by Pulse 97 Oximetry Oxygen Devices in Use Now: None Appearance: alert, no distress Eyes: No Scleral Icterus Ears/Nose/Mouth/Throat: NL Teeth, Lips, Gums Neck: NL Appearance and Movements; NL JVP Respiratory: Symmetrical Chest Expansion and Respiratory Effort, Clear to Auscultation Cardiovascular: NL Sounds; No Murmurs; No JVD Abdominal: NL Sounds; No Tenderness; No Distention, - - obese Lymphatic: No Cervical Adenopathy Extremities: - - 3+ edema LLE, to knee, 1+ RLE Skin: - - erythema in LT ankle, lateral worse than medial, up to mid gómez, down to dorsum foot, with small ulcer lateral malleolus, draining serosanguinous fluid Neurological: Alert and Oriented x 3 Lines/Tubes/Other Access: Clean, Dry and Intact Peripheral IV Nutrition: Taking PO's Result Diagrams: 11/12/18 07:47 11/12/18 07:47 Microbiology and Other Data: Microbiology 11/11/18 17:55 Aerobic Blood Culture - Preliminary Blood Venous No Growth Day 1 Anaerobic Blood Culture - Preliminary No Growth Day 1 11/11/18 17:40 Aerobic Blood Culture - Preliminary Blood Venous No Growth Day 1 Anaerobic Blood Culture - Preliminary No Growth Day 1 Diagnostic Imaging: LLE doppler: no DVT LLE/ankle US: possible abscess or phlegmon Assess/Plan/Problems-Billing Assessment: 68 yo woman with schizophrenia, chronic venous stasis in LE, here with LT foot/ ankle cellulitis - Patient Problems (1) Cellulitis of left ankle Current Visit: Yes Status: Acute Priority: High Code(s): L03.116 - CELLULITIS OF LEFT LOWER LIMB SNOMED Code(s): 14686550 Comment: -Patient responding well to IV cefazolin, continue same -Still concerning that she is having fevers -Will elevated extremity more fully (2) Abscess of foot without toes, left Current Visit: Yes Status: Acute Priority: Medium Code(s): L02.612 - CUTANEOUS ABSCESS OF LEFT FOOT SNOMED Code(s): 61557533 Comment: -Will address drainage from wound w/ dressing changes -Will follow clinically, may need I&D if not resolving (3) DVT prophylaxis Current Visit: No Status: Acute Priority: Medium Code(s): MRD3553 - SNOMED Code(s): 517983601 Comment: -high risk due to h/o DVT, current swelling -Continue warfarin, recheck INR daily Status and Disposition: inpatient
[2018-11-12] MEDS: risperiDONE TAB* 3 MG PO SCH (22:18)
[2018-11-12] MEDS ORDERED: Ketorolac INJ* 30 MG/ML 1 ML VIAL IV PUSH STA (23:39)
--- NOTE | 2018-11-12 23:42 | PN ---
Hospitalist Progress Note Date of Service: 11/12/18 Text paged by RN given fever of 102.2---so far highest recorded. Reviewed chart , meds, and labs. Pt w/normal renal function not allergic to NSAIDs and not concern for GIB nor history thereof. Blood cultures last done yesterday and currently on abx since. No need to repeat recently drawn cultures. Rest of VS stable. Will give 1x dose of Ketorolac for fever. Pt reported to have been given Tylenol and placed on icepacks.
[2018-11-13] MEDS ORDERED: Albuterol/Ipratropium NEB.SOL* Albuterol 2.5 MG/Ipratropium 0.5 MG 3 ML INH PRN (00:03)
[2018-11-13] MEDS ORDERED: methylPREDNISolone 125 MG* 2 ML VIAL IV STA (00:56)
[2018-11-13] MEDS ORDERED: methylPREDNISolone SOD 40 MG* 1 ML VIAL IV SCH ×2 (06:00→09:00)
[2018-11-13] MEDS: ceFAZolin VIAL(*) 2 GM in NS 0.9% 100 ML* 100 ML IVPB SCH (06:06)
[2018-11-13 06:14] LABS: INR 1.98 (0.77-1.02)
[2018-11-13] MEDS ORDERED: Piperacillin/Tazobac ADVAN(*) 3.375 GM in NS 0.9% 100 ML* 100 ML IVPB ONE ×2 (06:22→06:30)
[2018-11-13 06:26] LABS: ABS Basophils 0.1 10^3/ul (0-0.2); ABS Eosinophils 0 10^3/ul (0-0.6); ABS Lymphocytes 0.6 10^3/ul (1.0-4.8); ABS Monocytes 0.4 10^3/ul (0-0.8); ABS Neutrophils 10.9 10^3/ul (1.5-7.7); ABS Nucleated RBC 0 10^3/ul; Eosinophil % 0.1 %; Hematocrit 32 % (35-47); Hemoglobin 10.3 g/dl (12.0-16.0); Lymphocyte % 4.8 %; Mean Corpuscular HGB Conc 33 g/dl (31-36); Mean Corpuscular Hemoglobin 28 pg (27-31); Mean Corpuscular Volume 87 fL (80-97); Mean Platelet Volume 7.5 fL (7.4-10.4); Nucleated Red Blood Cells % 0; Platelet Count 317 10^3/ul (150-450); Red Blood Count 3.63 10^6/ul (4.00-5.40); Red Cell Distribution Width 17 % (10.5-15); White Blood Count 11.9 10^3/ul (3.5-10.8)
[2018-11-13] MEDS ORDERED: Zosyn per Pharmacy* NOTE FOLLOW UP SCH (07:00)
[2018-11-13] MEDS: Furosemide TAB* 20 MG PO SCH (07:48)
--- NOTE | 2018-11-13 08:51 | PN ---
Subjective Date of Service: 11/13/18 Interval History: Events of overnight noted. Patient had fever, then had lethargy, unresponsive to sternal rub. Was found to have mild hypercarbic and hypoxic respiratory failure. Was moved to ICU, treated w/ BiPAP, given Zosyn/solumedrol for possible pneumonia or COPD exacerbation. Patient denies h/o sleep apnea. Tolerated BiPAP well. LEFT foot pain is less Family History: Unchanged from Admission Social History: Unchanged from Admission Past Medical History: Unchanged from Admission Objective Active Medications: Acetaminophen (Tylenol Tab*) 650 mg PO Q4H PRN PRN Reason: PAIN Last Admin: 11/12/18 22:18 Dose: 650 mg Albuterol/Ipratropium (Duoneb (Albuterol 2.5 Mg/Ipratropium 0.5 Mg)) 1 neb INH Q4H PRN PRN Reason: SOB/WHEEZING Atorvastatin Calcium (Lipitor*) 40 mg PO QPM [facility] Last Admin: 11/12/18 16:38 Dose: 40 mg Docusate Sodium (Colace Cap*) 100 mg PO BID PRN PRN Reason: CONSTIPATION Furosemide (Lasix Tab*) 60 mg PO 0800 [facility] Last Admin: 11/13/18 07:48 Dose: 60 mg Piperacillin Sod/Tazobactam (Sod 3.375 gm/ Sodium Chloride) 100 mls @ 25 mls/ hr IVPB Q8H [facility] Levothyroxine Sodium (Synthroid Tab*) 100 mcg PO DAILY [facility] Metoprolol Succinate (Toprol Xl Tab*) 50 mg PO DAILY [facility] Last Admin: 11/12/18 09:27 Dose: 50 mg Nystatin (Nystatin Cream*) 1 applic TOPICAL TID [facility] Last Admin: 11/12/18 22:18 Dose: 1 applic Pharmacy Consult (Zosyn Per Pharmacy*) 1 note FOLLOW UP .ZOSYN PER PHARMACY [facility] Potassium Chloride (Klor Con Er Tab*) 20 meq PO DAILY [facility] Last Admin: 11/12/18 09:27 Dose: 20 meq Risperidone (Risperdal*) 3 mg PO BEDTIME [facility] Last Admin: 11/12/18 22:18 Dose: 3 mg Warfarin Sodium (Coumadin Tab(*)) 6 mg PO DAILY@1700 [facility]; Protocol Vital Signs - 8 hr 11/12/18 11/13/18 11/13/18 23:52 01:02 01:13 Temperature 37.6 C 38.1 C Pulse Rate 83 79 67 Respiratory 28 20 Rate Blood Pressure 107/53 (mmHg) O2 Sat by Pulse 92 96 100 Oximetry 11/13/18 11/13/18 11/13/18 01:17 03:00 03:01 Temperature 37.2 C 37.2 C Pulse Rate 75 68 69 Respiratory 22 12 13 Rate Blood Pressure 113/91 113/91 (mmHg) O2 Sat by Pulse 100 99 99 Oximetry 11/13/18 11/13/18 11/13/18 03:08 03:34 03:39 Temperature 36.3 C 37.3 C Pulse Rate 71 64 Respiratory 21 12 14 Rate Blood Pressure 113/91 130/73 (mmHg) O2 Sat by Pulse 100 98 Oximetry 11/13/18 11/13/18 11/13/18 04:00 04:01 05:01 Temperature 37.2 C 37.2 C 37.2 C Pulse Rate 66 67 61 Respiratory 12 10 12 Rate Blood Pressure 137/69 (mmHg) O2 Sat by Pulse 98 98 99 Oximetry 11/13/18 11/13/18 11/13/18 05:07 05:10 05:33 Temperature 37.2 C Pulse Rate 64 Respiratory 16 12 13 Rate Blood Pressure 145/80 (mmHg) O2 Sat by Pulse 99 Oximetry 11/13/18 11/13/18 11/13/18 06:01 06:30 07:00 Temperature 37.2 C 37.1 C Pulse Rate 65 66 Respiratory 13 15 21 Rate Blood Pressure 150/77 (mmHg) O2 Sat by Pulse 99 99 Oximetry 11/13/18 11/13/18 11/13/18 07:01 07:56 08:00 Temperature 37.1 C 37.0 C 37.0 C Pulse Rate 75 76 68 Respiratory 18 28 16 Rate Blood Pressure 153/83 (mmHg) O2 Sat by Pulse 96 96 97 Oximetry Oxygen Devices in Use Now: Nasal Cannula Appearance: alert, no distress Eyes: No Scleral Icterus Ears/Nose/Mouth/Throat: Clear Oropharnyx Neck: No Thyroid Enlargement, Masses Respiratory: Symmetrical Chest Expansion and Respiratory Effort, Clear to Auscultation Cardiovascular: NL Sounds; No Murmurs; No JVD, RRR Lymphatic: No Cervical Adenopathy Skin: - - left ankle beefy red, erythema not spreading c/w yesterday, bandage w / sero-sang drainage Neurological: Alert and Oriented x 3 Lines/Tubes/Other Access: Clean, Dry and Intact Peripheral IV Nutrition: Taking PO's Result Diagrams: 11/13/18 06:12 11/12/18 07:47 Additional Lab and Data: Laboratory Tests 11/13/18 11/13/18 11/13/18 00:21 03:29 05:07 INR (Anticoag Therapy) 1.98 H ABG pH 7.36 7.39 ABG pCO2 51 H 50 H ABG pO2 58 L* 355 H Troponin I 11/13/18 11/13/18 05:07 08:02 INR (Anticoag Therapy) ABG pH ABG pCO2 ABG pO2 Troponin I 0.03 0.01 Microbiology and Other Data: Microbiology 11/11/18 17:55 Aerobic Blood Culture - Preliminary Blood Venous No Growth Day 1 Anaerobic Blood Culture - Preliminary No Growth Day 1 11/11/18 17:40 Aerobic Blood Culture - Preliminary Blood Venous No Growth Day 1 Anaerobic Blood Culture - Preliminary No Growth Day 1 Diagnostic Imaging: CXR portable: cardiomegaly, no infiltrates EKG Data: EKG: NSR, LVH Echo 07/24: essentially normal Assess/Plan/Problems-Billing Assessment: 68 yo woman with schizophrenia, chronic venous stasis in LE, here with LT foot/ ankle cellulitis - Patient Problems (1) Cellulitis of left ankle Current Visit: Yes Status: Acute Priority: High Code(s): L03.116 - CELLULITIS OF LEFT LOWER LIMB SNOMED Code(s): 78854312 Comment: -Had been responding well to IV cefazolin, now on Zosyn which should be adequate -Still concerning that she is having fevers (2) Abscess of foot without toes, left Current Visit: Yes Status: Acute Priority: Medium Code(s): L02.612 - CUTANEOUS ABSCESS OF LEFT FOOT SNOMED Code(s): 84395198 Comment: -Will address drainage from wound w/ dressing changes -Will follow clinically, may need I&D if not resolving (3) DVT prophylaxis Current Visit: No Status: Acute Priority: Medium Code(s): PGV3005 - SNOMED Code(s): 317673392 Comment: -high risk due to h/o DVT, current swelling -increased warfarin due to INR <2, recheck INR daily (4) Acute respiratory failure with hypoxia and hypercarbia Current Visit: Yes Status: Acute Priority: Medium Code(s): J96.01 - ACUTE RESPIRATORY FAILURE WITH HYPOXIA; J96.02 - ACUTE RESPIRATORY FAILURE WITH HYPERCAPNIA SNOMED Code(s): 637269586 Comment: -strongly suspect sleep apnea as main cause, will have BiPAP again tonight -Repeat CXR with PA/Lat, as portable non--diagnostic Status and Disposition: inpatient
[2018-11-13] MEDS: Metoprolol Succinate XL TAB* 50 MG PO SCH (09:24)
[2018-11-13] MEDS: Potassium Chlor TAB* 20 MEQ TAB.ER PO SCH (09:24)
[2018-11-13] MEDS: Levothyroxine TAB* 100 MCG TAB PO SCH (09:24)
[2018-11-13] MEDS: Nystatin CREAM* 30 GM TOPICAL SCH ×3 (10:00→21:14)
[2018-11-13] MEDS: ZOSYN 3.375 GM Q8H per EXTENDED INFUSION IVPB SCH ×4 (13:17→20:24)
[2018-11-13] MEDS: Warfarin TAB(*) 5 MG PO SCH (16:04)
[2018-11-13] MEDS: Warfarin TAB(*) 2 MG PO SCH (16:04)
[2018-11-13] MEDS: Atorvastatin* 40 MG TAB PO SCH (16:04)
[2018-11-13] MEDS ORDERED: Warfarin TAB(*) 6 MG PO SCH (17:00)
[2018-11-13] MEDS: risperiDONE TAB* 3 MG PO SCH (20:24)
[2018-11-14] MEDS: ZOSYN 3.375 GM Q8H per EXTENDED INFUSION IVPB SCH ×6 (04:26→19:48)
[2018-11-14 07:11] LABS: INR 2.93 (0.77-1.02)
[2018-11-14] MEDS: Levothyroxine TAB* 100 MCG TAB PO SCH (08:26)
[2018-11-14] MEDS: Potassium Chlor TAB* 20 MEQ TAB.ER PO SCH (08:27)
[2018-11-14] MEDS: Furosemide TAB* 20 MG PO SCH (08:27)
[2018-11-14] MEDS: Metoprolol Succinate XL TAB* 50 MG PO SCH (08:27)
[2018-11-14] MEDS: Nystatin CREAM* 30 GM TOPICAL SCH ×3 (08:28→21:08)
--- NOTE | 2018-11-14 17:04 | PN ---
Subjective Date of Service: 11/14/18 Interval History: Patient has no new complaints. Has some pain in LT foot PT came to see patient today, was able to walk a bit. Patient has no know h/o CHARISSE prior to this admission Family History: Unchanged from Admission Social History: Unchanged from Admission Past Medical History: Unchanged from Admission Objective Active Medications: Acetaminophen (Tylenol Tab*) 650 mg PO Q4H PRN PRN Reason: PAIN Last Admin: 11/12/18 22:18 Dose: 650 mg Albuterol/Ipratropium (Duoneb (Albuterol 2.5 Mg/Ipratropium 0.5 Mg)) 1 neb INH Q4H PRN PRN Reason: SOB/WHEEZING Atorvastatin Calcium (Lipitor*) 40 mg PO QPM [facility] Last Admin: 11/13/18 16:04 Dose: 40 mg Docusate Sodium (Colace Cap*) 100 mg PO BID PRN PRN Reason: CONSTIPATION Furosemide (Lasix Tab*) 60 mg PO 0800 [facility] Last Admin: 11/14/18 08:27 Dose: 60 mg Piperacillin Sod/Tazobactam (Sod 3.375 gm/ Sodium Chloride) 100 mls @ 25 mls/ hr IVPB Q8H [facility] Last Admin: 11/14/18 13:05 Dose: 25 mls/hr Levothyroxine Sodium (Synthroid Tab*) 100 mcg PO DAILY [facility] Last Admin: 11/14/18 08:26 Dose: 100 mcg Metoprolol Succinate (Toprol Xl Tab*) 50 mg PO DAILY [facility] Last Admin: 11/14/18 08:27 Dose: 50 mg Nystatin (Nystatin Cream*) 1 applic TOPICAL TID [facility] Last Admin: 11/14/18 13:06 Dose: 1 applic Pharmacy Consult (Zosyn Per Pharmacy*) 1 note FOLLOW UP .ZOSYN PER PHARMACY [facility] Potassium Chloride (Klor Con Er Tab*) 20 meq PO DAILY [facility] Last Admin: 11/14/18 08:27 Dose: 20 meq Risperidone (Risperdal*) 3 mg PO BEDTIME [facility] Last Admin: 11/13/18 20:24 Dose: 3 mg Warfarin Sodium (Coumadin Tab(*)) 2 mg PO 1700 [facility] Last Admin: 11/13/18 16:04 Dose: 2 mg Warfarin Sodium (Coumadin Tab(*)) 5 mg PO 1700 [facility] Last Admin: 11/13/18 16:04 Dose: 5 mg Vital Signs - 8 hr 11/14/18 11/14/18 11/14/18 09:49 11:07 15:20 Temperature 36.9 C 36.8 C Pulse Rate 71 71 Respiratory 18 16 18 Rate Blood Pressure 107/50 125/68 (mmHg) O2 Sat by Pulse 91 91 Oximetry Oxygen Devices in Use Now: Nasal Cannula Appearance: obese, lying in bed Eyes: No Scleral Icterus Ears/Nose/Mouth/Throat: NL Teeth, Lips, Gums Neck: NL Appearance and Movements; NL JVP Respiratory: Symmetrical Chest Expansion and Respiratory Effort Cardiovascular: NL Sounds; No Murmurs; No JVD Abdominal: NL Sounds; No Tenderness; No Distention Extremities: - - 2+ edema LLE, 1+ RLE Skin: - - dressing shows sero-sanguinous drainage lateral LT ankle Neurological: Alert and Oriented x 3 Lines/Tubes/Other Access: Clean, Dry and Intact Peripheral IV Nutrition: Taking PO's Result Diagrams: 11/13/18 06:12 11/12/18 07:47 Additional Lab and Data: Laboratory Tests 11/14/18 06:37 INR (Anticoag Therapy) 2.93 H Assess/Plan/Problems-Billing Assessment: 68 yo woman with schizophrenia, chronic venous stasis in LE, here with LT foot/ ankle cellulitis - Patient Problems (1) Cellulitis of left ankle Current Visit: Yes Status: Acute Priority: High Code(s): L03.116 - CELLULITIS OF LEFT LOWER LIMB SNOMED Code(s): 03739032 Comment: -Had been responding better to Zosyn has defervesced -Will repeat U/S, follow abscess -May need surgical drainage. -Will try to BEATRIZ wrap to reduce tension on skin (2) Abscess of foot without toes, left Current Visit: Yes Status: Acute Priority: Medium Code(s): L02.612 - CUTANEOUS ABSCESS OF LEFT FOOT SNOMED Code(s): 09662948 Comment: -May be draining spontaneously, continue w/ dressing changes -Will follow clinically, may need I&D if not resolving (3) DVT prophylaxis Current Visit: No Status: Acute Priority: Medium Code(s): [id number] - SNOMED Code(s): 698644360 Comment: -high risk due to h/o DVT, current swelling -INR in range today, recheck INR daily (4) Acute respiratory failure with hypoxia and hypercarbia Current Visit: Yes Status: Acute Priority: Medium Code(s): J96.01 - ACUTE RESPIRATORY FAILURE WITH HYPOXIA; J96.02 - ACUTE RESPIRATORY FAILURE WITH HYPERCAPNIA SNOMED Code(s): 489766335 Comment: -strongly suspect sleep apnea as main cause, will need home BiPAP -Will have overnight oximetry study Status and Disposition: inpatient
[2018-11-14] MEDS: Warfarin TAB(*) 2 MG PO SCH (17:28)
[2018-11-14] MEDS: Warfarin TAB(*) 5 MG PO SCH (17:28)
[2018-11-14] MEDS: Atorvastatin* 40 MG TAB PO SCH (17:35)
[2018-11-14] MEDS ORDERED: Warfarin TAB(*) 2.5 MG PO SCH (18:00)
[2018-11-14] MEDS ORDERED: Warfarin TAB(*) 4 MG PO SCH (18:00)
[2018-11-14] MEDS: risperiDONE TAB* 3 MG PO SCH (21:06)
[2018-11-15] MEDS: ZOSYN 3.375 GM Q8H per EXTENDED INFUSION IVPB SCH ×4 (03:42→12:29)
[2018-11-15] MEDS: Metoprolol Succinate XL TAB* 50 MG PO SCH (08:11)
[2018-11-15] MEDS: Furosemide TAB* 20 MG PO SCH (08:11)
[2018-11-15] MEDS: Levothyroxine TAB* 100 MCG TAB PO SCH (08:11)
[2018-11-15] MEDS: Potassium Chlor TAB* 20 MEQ TAB.ER PO SCH (08:12)
[2018-11-15] MEDS: Nystatin CREAM* 30 GM TOPICAL SCH ×3 (08:12→22:10)
--- NOTE | 2018-11-15 17:01 | PN ---
Subjective Date of Service: 11/15/18 Interval History: Patient has no new complaints. She is OOB to bathroom. Still has some pain in LT ankle. Family History: Unchanged from Admission Social History: Unchanged from Admission Past Medical History: Unchanged from Admission Objective Active Medications: Acetaminophen (Tylenol Tab*) 650 mg PO Q4H PRN PRN Reason: PAIN Last Admin: 11/12/18 22:18 Dose: 650 mg Albuterol/Ipratropium (Duoneb (Albuterol 2.5 Mg/Ipratropium 0.5 Mg)) 1 neb INH Q4H PRN PRN Reason: SOB/WHEEZING Atorvastatin Calcium (Lipitor*) 40 mg PO QPM [facility] Last Admin: 11/14/18 17:35 Dose: 40 mg Docusate Sodium (Colace Cap*) 100 mg PO BID PRN PRN Reason: CONSTIPATION Furosemide (Lasix Tab*) 60 mg PO 0800 [facility] Last Admin: 11/15/18 08:11 Dose: 60 mg Piperacillin Sod/Tazobactam (Sod 3.375 gm/ Sodium Chloride) 100 mls @ 25 mls/ hr IVPB Q8H [facility] Last Admin: 11/15/18 12:29 Dose: 25 mls/hr Levothyroxine Sodium (Synthroid Tab*) 100 mcg PO DAILY [facility] Last Admin: 11/15/18 08:11 Dose: 100 mcg Metoprolol Succinate (Toprol Xl Tab*) 50 mg PO DAILY [facility] Last Admin: 11/15/18 08:11 Dose: 50 mg Nystatin (Nystatin Cream*) 1 applic TOPICAL TID [facility] Last Admin: 11/15/18 14:48 Dose: 1 applic Pharmacy Consult (Zosyn Per Pharmacy*) 1 note FOLLOW UP .ZOSYN PER PHARMACY [facility] Potassium Chloride (Klor Con Er Tab*) 20 meq PO DAILY [facility] Last Admin: 11/15/18 08:12 Dose: 20 meq Risperidone (Risperdal*) 3 mg PO BEDTIME [facility] Last Admin: 11/14/18 21:06 Dose: 3 mg Vital Signs - 8 hr 11/15/18 11:56 Temperature 36.8 C Pulse Rate 70 Respiratory 30 Rate Blood Pressure 150/77 (mmHg) O2 Sat by Pulse 94 Oximetry Oxygen Devices in Use Now: BiPAP Appearance: obese, alert, lying in bed Ears/Nose/Mouth/Throat: Clear Oropharnyx Neck: No Thyroid Enlargement, Masses Respiratory: Clear to Auscultation, Clear to Percussion Cardiovascular: NL Sounds; No Murmurs; No JVD Abdominal: NL Sounds; No Tenderness; No Distention Skin: - - left ankle w/ circumferential erythema, chronic venous stasis, 2+ edema. 2cm focal raised area lateral ankle, pus expressed Neurological: Alert and Oriented x 3 Lines/Tubes/Other Access: Clean, Dry and Intact Peripheral IV Nutrition: Taking PO's Result Diagrams: 11/13/18 06:12 11/12/18 07:47 Additional Lab and Data: Laboratory Tests 11/14/18 06:37 INR (Anticoag Therapy) 2.93 H Microbiology and Other Data: Dc Microbiology 11/13/18 05:07 Nasal Nasal Screen MRSA (PCR) - Final Mrsa Not Detected 11/13/18 07:00 Blood Venous Aerobic Blood Culture - Preliminary 11/13/18 07:00 Blood Venous Anaerobic Blood Culture - Preliminary No Growth Day 2 No Growth Day 2 11/13/18 06:55 Blood Venous Aerobic Blood Culture - Preliminary No Growth Day 2 11/11/18 17:55 Blood Venous Aerobic Blood Culture - Preliminary 11/11/18 17:55 Blood Venous Anaerobic Blood Culture - Preliminary No Growth Day 3 No Growth Day 3 11/11/18 17:40 Blood Venous Aerobic Blood Culture - Preliminary 11/11/18 17:40 Blood Venous Anaerobic Blood Culture - Preliminary No Growth Day 3 No Growth Day 3 Assess/Plan/Problems-Billing Assessment: 68 yo woman with schizophrenia, chronic venous stasis in LE, here with LT foot/ ankle cellulitis and abscess - Patient Problems (1) Cellulitis of left ankle Current Visit: Yes Status: Acute Priority: High Code(s): L03.116 - CELLULITIS OF LEFT LOWER LIMB SNOMED Code(s): 67729667 Comment: -Had been responding better to Zosyn, has defervesced -Repeat U/S shows persisting abscess, discussed with Dr. Bishop -Will need surgical drainage. (2) Abscess of foot without toes, left Current Visit: Yes Status: Acute Priority: Medium Code(s): L02.612 - CUTANEOUS ABSCESS OF LEFT FOOT SNOMED Code(s): 46240839 Comment: -Was thought to be draining spontaneously, but appears to be extending deeper (3) DVT prophylaxis Current Visit: No Status: Acute Priority: Medium Code(s): BQN8577 - SNOMED Code(s): 113412622 Comment: -high risk due to h/o DVT, current swelling -INR in range today, recheck INR daily (4) Acute respiratory failure with hypoxia and hypercarbia Current Visit: Yes Status: Acute Priority: Medium Code(s): J96.01 - ACUTE RESPIRATORY FAILURE WITH HYPOXIA; J96.02 - ACUTE RESPIRATORY FAILURE WITH HYPERCAPNIA SNOMED Code(s): 981051013 Comment: -strongly suspect sleep apnea as main cause of ICU transfer for unresponsive epsidoe' -will need home BiPAP -Had overnight oximetry study last night Status and Disposition: inpatient
[2018-11-15] MEDS: Atorvastatin* 40 MG TAB PO SCH (17:40)
[2018-11-15] MEDS ORDERED: Vancomycin per Pharmacy* NOTE FOLLOW UP PRN (19:25)
[2018-11-15] MEDS ORDERED: Vancomycin(*) 2,000 MG in NS 0.9% 500 ML* 500 ML IVPB ONE (20:00)
[2018-11-15 20:31] LABS: INR 3.9 (0.77-1.02)
[2018-11-15 20:33] LABS: INR 3.85 (0.77-1.02)
--- NOTE | 2018-11-15 21:15 | PRO ---
CC: Dr. Deyanira Calero, [facility] * CONSULTATION AND PROCEDURE NOTE: DATE OF PROCEDURE: 11/15/18 CHIEF COMPLAINT: Left ankle wound. HISTORY OF PRESENT ILLNESS: This is a 68-year-old morbidly obese female with chronic lymphedema of the lower extremities who was admitted on 11/11/18 with signs and symptoms of a left lower extremity infection of approximately 2 weeks ' duration (see further details in the admission history and physical). The patient states that she did have significant pain; however, today she states that the pain is much improved. She apparently did have some initial drainage prior to admission, but the wound since has been draining more freely. She has been treated with Zosyn. I did not see any record of a wound culture. We were asked to consult for wound care and possible debridement. The patient has not had any prior similar issues. She is a nonsmoker. She is a type 2 diabetic, treated at this point only with diet and exercise, her last A1c being 6.1 in July 2018. She also has a history of DVT (she believes both LE's) and has been on chronic warfarin anticoagulation "for years". Her INR is 2.9. PHYSICAL EXAMINATION: On exam, height 5.4, weight 323 pounds, BMI 55. Temperature on admission 100.5, this morning 98.3. Other vital signs are noted and are within acceptable range. Exam is, otherwise, limited to the left lower extremity where there is a necrotic wound over the lateral malleolus with a small open wound measuring approximately 1 x 2 cm with an area measuring another maybe 2 x 3 cm of necrotic tissue overlying the wound. There is necrotic debris within the wound, though it does not appear as though there is any undrained collection. The wound undermines to a depth of approximately 3.5 cm in the direction of the dorsum of the foot. There is no apparent exposed bone or probing to bone. She has free range of motion at the ankle. There are signs of chronic lymphedema. There is dull erythema around the ankle and over the dorsum of the foot and this fades as one gets to approximately detention up the lower leg. There is no current streaking, there is no tenderness to palpation even around the wound, other than when I am probing the wound. By handheld Doppler, she has good dorsalis pedis and posterior tibial arterial signals. PROCEDURE NOTE: After discussion with the patient, obtaining written consent, and performing time-out, the area of the wound was anesthetized with 1% plain lidocaine. The wound was unroofed and debrided of necrotic material. There was no significant bleeding and the patient tolerated the procedure well. Wound was packed with 0.5 inch plain packing, which will be continued on a daily basis. A culture was submitted and dry sterile dressings and Sigifredo wrap were reapplied. BRIE HARRIS [id number]/[facility] #: [id number] CARI
[2018-11-15] MEDS: risperiDONE TAB* 3 MG PO SCH (21:31)
[2018-11-15] MEDS: metroNIDAZOLE IV 500 MG/100ML* 500 MG/100 ML BAG IVPB SCH (22:06)
[2018-11-16] MEDS: Vancomycin(*) 1,250 MG in NS 0.9% 250 ML* 250 ML IVPB SCH ×3 (05:34→21:32)
[2018-11-16] MEDS: Levothyroxine TAB* 100 MCG TAB PO SCH (07:41)
[2018-11-16] MEDS: metroNIDAZOLE IV 500 MG/100ML* 500 MG/100 ML BAG IVPB SCH (10:30)
[2018-11-16] MEDS: Potassium Chlor TAB* 20 MEQ TAB.ER PO SCH (10:31)
[2018-11-16] MEDS: Furosemide TAB* 20 MG PO SCH (10:31)
[2018-11-16] MEDS: Metoprolol Succinate XL TAB* 50 MG PO SCH (10:34)
[2018-11-16] MEDS: Nystatin CREAM* 30 GM TOPICAL SCH ×3 (10:37→21:28)
--- NOTE | 2018-11-16 11:50 | PN ---
Progress Note - Progress Note Date of Service: 11/16/18 Note: Surgery Progress Note Surgery was asked to perform an incision and drainage of patient's left ankle abscess. Please see procedure note from yesterday. This morning wound around the lateral malleolus appears approximately 2cm, non tender, clean and not draining, with reactive erythema. Recommend daily dressing changes and patient can follow up in the office or at the wound care clinic after discharge. Please feel free to call surgery as needed.
--- NOTE | 2018-11-16 13:36 | CONSULT ---
Subjective Date of Service: 11/16/18 Interval History: Ms. Shearer is a 68 yo female with PMH significant for morbid obesity, bilateral LE lymphedema, chronic venous stasis, DM2, HTN, hypothyroidism, and schizophrenia who presented to the emergency room with complaints of left LE redness and pain. She reported 2 weeks of left LE redness with pain. While in the hospital she was found to have a left lateral mall abscess that is now S/P I+D on 11/15 by general surgery. The wound culture is positive for MRSA. Family History: Unchanged from Admission Social History: Unchanged from Admission Past Medical History: Unchanged from Admission Review of Systems - Measurements Intake and Output: Intake and Output Last 24 Hours 11/14/18 11/15/18 11/16/18 11/17/18 06:59 06:59 06:59 06:59 Intake Total 2520 1300 2265 480 Output Total 890 Balance 1630 1300 2265 480 Intake: IV Fluids 5 NS (0.9%) 5 IVPB 115 ABX - CEFAZOLIN 115 Oral 2400 1300 2265 480 Output: Bhatt 890 Other: Estimated Void Medium # Bowel Movements 0 0 1 Estimated Stool Amount Medium Medium # Voids 0 0 0 - Review of Systems Constitutional Symptoms: Negative: Fever, Other - Chills Dermatology: Positive: Other - Redness left LE with an incision to the left lateral malleolus Objective Active Medications: Acetaminophen (Tylenol Tab*) 650 mg PO Q4H PRN Reason: PAIN Albuterol/Ipratropium (Duoneb (Albuterol 2.5 Mg/Ipratropium 0.5 Mg)) 1 neb INH Q4H PRN Reason: SOB/WHEEZING Atorvastatin Calcium (Lipitor*) 40 mg PO QPM [facility] Docusate Sodium (Colace Cap*) 100 mg PO BID PRN Reason: CONSTIPATION Furosemide (Lasix Tab*) 60 mg PO 0800 [facility] Metronidazole/Sodium Chloride (Flagyl 500 Mg Ivpb*) 500 mg in 100 mls @ 100 mls /hr IVPB Q12H [facility] Vancomycin HCl 1,250 mg/ (Sodium Chloride) 250 mls @ 166.667 mls/hr IVPB Q8H [facility] Levothyroxine Sodium (Synthroid Tab*) 100 mcg PO DAILY [facility] Metoprolol Succinate (Toprol Xl Tab*) 50 mg PO DAILY [facility] Nystatin (Nystatin Cream*) 1 applic TOPICAL TID [facility] Pharmacy Consult (Vancomycin Per Pharmacy*) 1 note FOLLOW UP Pharmacy Profile Note (Vancomycin Trough Check) 1 note FOLLOW UP 0600 ONE Stop: 11/17/18 06:01 Potassium Chloride (Klor Con Er Tab*) 20 meq PO DAILY [facility] Risperidone (Risperdal*) 3 mg PO BEDTIME [facility] Vital Signs - 8 hr 11/16/18 11/16/18 07:31 08:00 Temperature 98.3 F Pulse Rate 76 Respiratory 18 18 Rate Blood Pressure 148/82 (mmHg) O2 Sat by Pulse 93 Oximetry Oxygen Devices in Use Now: None Appearance: NAD, sitting up on the side of the bed Ears/Nose/Mouth/Throat: Mucous Membranes Moist Extremities: - - Bilateral LE lymphedema Skin: - - See skin note below Neurological: Alert and Oriented x 3 Result Diagrams: 11/13/18 06:12 11/17/18 06:04 Microbiology and Other Data: Ks Microbiology 11/13/18 05:07 Nasal Nasal Screen MRSA (PCR) - Final Mrsa Not Detected 11/13/18 07:00 Blood Venous Aerobic Blood Culture - Preliminary 11/13/18 07:00 Blood Venous Anaerobic Blood Culture - Preliminary No Growth Day 2 No Growth Day 2 11/13/18 06:55 Blood Venous Aerobic Blood Culture - Preliminary No Growth Day 2 11/11/18 17:55 Blood Venous Aerobic Blood Culture - Preliminary 11/11/18 17:55 Blood Venous Anaerobic Blood Culture - Preliminary No Growth Day 3 No Growth Day 3 11/11/18 17:40 Blood Venous Aerobic Blood Culture - Preliminary 11/11/18 17:40 Blood Venous Anaerobic Blood Culture - Preliminary No Growth Day 3 No Growth Day 3 EKG Data: l Skin Deviation Note - Skin Deviation Findings Left lateral ankle - Incision, 1.8 cm x 3 cm x 1.5 cm. There is undermining located at 3 o'clock that measures 1.9 cm, 5 o'clock that measures 1.4 cm and 9 o'clock that measures 1.5 cm. There is mild erythema surrounding the wound. The wound bed is red. There is a small amount of serosanguineous drainage noted after probing the wound at the 3 o'clock position. Assessment/Plan: Ms. Shearer is a 68 yo female with PMH significant for morbid obesity, bilateral LE lymphedema, chronic venous stasis, DM2, HTN, hypothyroidism, and schizophrenia who presented to the emergency room with complaints of left LE redness and pain. She is S/P I+D of a left ankle abscess. 1. Left lateral ankle abscess. S/P I+D. Packing changes per surgery. Continue antibiotics. Follow up with the wound clinic or general surgery office at discharge. 2. Bilateral LE lymphedema and chronic venous stasis. Consider ABIs in the future to evaluate circulation. Consider lymphedema clinic evaluation at discharge. 3. Diabetes Mellitus. HgA1C 6.1 in 07/2018. Diet controlled at home. Continue to maintain good glycemic control to allow for wound healing 4. Diet. Consistent Carb 5. Code Status. Full Code 6. Disposition. Inpatient, disposition per primary medicine team TIME SPENT: Time for this wound consultation was 25 minutes, and 15 minutes was spent with the patient discussing past medical history, assessing, measuring and photographing the wound. Wound Problem/Plan Is Patient a Wound Clinic Patient: No Attending: Willow Cooper
[2018-11-16] MEDS: Atorvastatin* 40 MG TAB PO SCH (18:44)
--- NOTE | 2018-11-16 20:11 | PN ---
Subjective Interval History: Remains afebril with WBC trending down. Reports improved pain since I&D. Would like to go home tomorrow. Family History: Unchanged from Admission Social History: Unchanged from Admission Past Medical History: Unchanged from Admission Objective Active Medications: Albuterol/Ipratropium (Duoneb (Albuterol 2.5 Mg/Ipratropium 0.5 Mg)) 1 neb INH Q4H PRN PRN Reason: SOB/WHEEZING Atorvastatin Calcium (Lipitor*) 40 mg PO QPM [facility] Last Admin: 11/16/18 18:44 Dose: 40 mg Furosemide (Lasix Tab*) 60 mg PO 0800 [facility] Last Admin: 11/16/18 10:31 Dose: 60 mg Vancomycin HCl 1,250 mg/ (Sodium Chloride) 250 mls @ 166.667 mls/hr IVPB Q8H [facility] Last Admin: 11/16/18 14:01 Dose: 166.667 mls/hr Levothyroxine Sodium (Synthroid Tab*) 100 mcg PO DAILY [facility] Last Admin: 11/16/18 07:41 Dose: 100 mcg Metoprolol Succinate (Toprol Xl Tab*) 50 mg PO DAILY [facility] Last Admin: 11/16/18 10:34 Dose: 50 mg Nystatin (Nystatin Cream*) 1 applic TOPICAL TID [facility] Last Admin: 11/16/18 14:02 Dose: 1 applic Pharmacy Consult (Vancomycin Per Pharmacy*) 1 note FOLLOW UP . PRN PRN Reason: PER PROTOCOL Pharmacy Profile Note (Vancomycin Trough Check) 1 note FOLLOW UP 0600 ONE Stop: 11/17/18 06:01 Potassium Chloride (Klor Con Er Tab*) 20 meq PO DAILY [facility] Last Admin: 11/16/18 10:31 Dose: 20 meq Risperidone (Risperdal*) 3 mg PO BEDTIME [facility] Last Admin: 11/15/18 21:31 Dose: 3 mg Vital Signs - 8 hr 11/16/18 11/16/18 12:07 16:18 Temperature 98.4 F 98.1 F Pulse Rate 73 82 Respiratory 24 22 Rate Blood Pressure 154/84 147/58 (mmHg) O2 Sat by Pulse 95 93 Oximetry Oxygen Devices in Use Now: BiPAP Appearance: well appearing, reclining in bed, nontoxic Respiratory: - - clear anteriorly Cardiovascular: RRR Abdominal: NL Sounds; No Tenderness; No Distention Skin: - - L medial maleolus wound non draining, not malodorous, dressings c/d/i Result Diagrams: 11/13/18 06:12 11/12/18 07:47 Microbiology and Other Data: Microbiology 11/11/18 17:55 Blood Venous Aerobic Blood Culture - Final No Growth Day 5 11/11/18 17:55 Blood Venous Anaerobic Blood Culture - Final No Growth Day 5 11/11/18 17:40 Blood Venous Aerobic Blood Culture - Final No Growth Day 5 11/11/18 17:40 Blood Venous Anaerobic Blood Culture - Final No Growth Day 5 11/15/18 16:30 Ankle Left Skin and Soft Tissue MRSA/MSSA (PCR - Final Mrsa Positive S.aureus Positive 11/15/18 16:30 Ankle Left Wound Culture - Preliminary Staphylococcus Aureus EKG Data: EKG: NSR, LVH Echo 07/24: essentially normal Assess/Plan/Problems-Billing Assessment: Ms. Shearer is a 68W with schizophrenia, chronic venous stasis in LE, HF, DM2 on diet, here with L foot/ankle cellulitis and abscess, now s/p I&D 11/15 with cultures positive for MRSA. - Patient Problems (1) Abscess of foot without toes, left Comment: s/p I&D on 11/15 with cultures positive for MRSA. Zosyn (11/13-11/15) was stopped. - cont vancomycin (11/11 - ), will switch to PO after final sensitivities - will need dressing changes at home (2) Acute diastolic CHF (congestive heart failure) Comment: HFpEF - cont home furosemide 40mg (3) DM2 (diabetes mellitus, type 2) Comment: diet controlled at home. A1C 6.1. (4) Hypothyroidism Comment: cont home levothyroxine 100mcg (5) Schizo affective schizophrenia Comment: controled on Risperdal (6) DVT (deep venous thrombosis) Comment: h/o DVT, currently on warfarin - dose per INR level Status and Disposition: Likely home tomorrow morning. Legal guardian will visit in the AM to possibly take pt home. Will need home services for dressing change. Will f/u with PCP for CHARISSE work up.
[2018-11-16] MEDS: risperiDONE TAB* 3 MG PO SCH (21:30)
[2018-11-17] MEDS ORDERED: Vancomycin Trough Check NOTE FOLLOW UP ONE (06:00)
[2018-11-17 06:25] LABS: INR 2.83 (0.77-1.02)
[2018-11-17 06:58] LABS: Vancomycin Trough 20.3 mcg/mL
[2018-11-17] MEDS: Vancomycin(*) 1,250 MG in NS 0.9% 250 ML* 250 ML IVPB SCH (07:09)
[2018-11-17] MEDS ORDERED: DOXYcycline CAP(*) 100 MG PO SCH (09:00)
[2018-11-17 09:03] LABS: EGFR African American 89.1 (>60); EGFR Non-African American 73.7 (>60)
[2018-11-17] MEDS: Furosemide TAB* 20 MG PO SCH (10:26)
[2018-11-17] MEDS: Levothyroxine TAB* 100 MCG TAB PO SCH (10:26)
[2018-11-17] MEDS: Metoprolol Succinate XL TAB* 50 MG PO SCH (10:26)
[2018-11-17] MEDS: Nystatin CREAM* 30 GM TOPICAL SCH (10:26)
[2018-11-17] MEDS: Potassium Chlor TAB* 20 MEQ TAB.ER PO SCH (10:26)
[2018-11-17] MEDS ORDERED: Vancomycin(*) 1,250 MG in NS 0.9% 250 ML* 250 ML IVPB SCH (11:00)
[2018-11-17 12:30] VITALS: BP 152/82
--- NOTE | 2018-11-18 00:03 | DS ---
CC: Deyanira Calero MD * DISCHARGE SUMMARY: DATE OF ADMISSION: 11/12/18 DATE OF DISCHARGE: 11/17/18 PRIMARY CARE PHYSICIAN: Deyanira Calero MD DISPOSITION: Home. CONDITION: Good. PRIMARY DIAGNOSIS: Lower extremity cellulitis and left ankle abscess. CONSULTS: General Surgery, I and D on 11/15/18. PERTINENT STUDIES: Ultrasound on 11/14/18 showing left ankle abscess. Wound culture positive for MRSA. HISTORY OF PRESENT ILLNESS: A 68-year-old woman with history of morbid obesity , lymphedema of lower extremities, type 2 diabetes, hypertension, hypothyroidism , and schizophrenia presenting with lower extremity redness and pain for 2 weeks. The pain has been getting progressively worse both at rest and on ambulation with one focal area of drainage. Denies fevers or chills. HOSPITAL COURSE: The patient was admitted for IV antibiotics. On night of admission, she was noted to have lethargy and found with mild hypercarbic and hypoxic respiratory failure and was moved to the ICU where she was treated with BiPAP and started on IV antibiotics. Suspicion for lung infection was low and it was strongly suspected that the patient has undiagnosed sleep apnea as the cause of her nocturnal hypoxia. Chest x-ray at that time is not concerning for pneumonia. Surgery was consulted given increased purulence from wound after ankle ultrasound showed abscess. The patient had I and D of abscess with improvement in pain and no longer had drainage from wound. When her cultures came back positive for MRSA, her antibiotics were narrowed to vancomycin, and on the day of discharge, she was switched to oral doxycycline. On the day of discharge, she reported mild shortness of breath on ambulation at her baseline with improvement in pain and drainage from ankles. Otherwise, 10-point review of systems is negative. PHYSICAL EXAM: Remarkable for wound over left lateral malleolus, approximately 2 cm, nontender, mild erythema, nondraining, not malodorous with dressing clean , dry, and intact. DISCHARGE PLAN: The patient is to follow up with her PCP within 1 to 2 weeks of discharge. She will have VNS see her at home for wound care. It is recommended that she be referred for sleep study for evaluation for CHARISSE, as she may need home CPAP. MEDICATION LIST: 1. Doxycycline 100 twice a day for 5 more days. 2. Risperidone 3 mg daily. 3. Warfarin 6 mg dosed by INR. 4. Potassium chloride 20 mEq daily. 5. Metoprolol succinate 50 mg daily. 6. Levothyroxine 100 mcg daily. 7. Furosemide 60 mg daily. 8. Atorvastatin 40 mg nightly. TIME SPENT: Approximately 60 minutes were spent on discharge of this patient, more than half of which was spent with care coordination or at bedside for interview and exam. [id number]/[facility] #: [id number] [facility]
== END 2018-11-17 12:40 | disposition home health service (06) | DRG 853 ==
LOC: ED 12:59 → MED 19:47 → OBSVTOIN 11-12 18:31 → ICU 11-13 01:17 → MED 11-13 13:15
PROVIDERS: ADMIT Hospitalist; ATTEND Internal Medicine
PROC: 5A09357 Assistance with Respiratory Ventilation, Less than 24 Consecutive Hours, Continuous Positive Airway Pressure (ICD-10-PCS; 2018-11-13)
PROC: 0JBR0ZZ Excision of Left Foot Subcutaneous Tissue and Fascia, Open Approach (ICD-10-PCS; principal; 2018-11-15)
DX: A41.9 Sepsis, unspecified organism (principal); J96.01 Acute respiratory failure with hypoxia; J96.02 Acute respiratory failure with hypercapnia; I50.31 Acute diastolic (congestive) heart failure; L03.116 Cellulitis of left lower limb; E11.52 Type 2 diabetes mellitus with diabetic peripheral angiopathy with gangrene; I96 Gangrene, not elsewhere classified; Z68.43 Body mass index [BMI] 50.0-59.9, adult; L02.416 Cutaneous abscess of left lower limb; E66.01 Morbid (severe) obesity due to excess calories; F20.9 Schizophrenia, unspecified; I89.0 Lymphedema, not elsewhere classified; B95.62 Methicillin resistant Staphylococcus aureus infection as the cause of diseases classified elsewhere; G47.33 Obstructive sleep apnea (adult) (pediatric); E78.00 Pure hypercholesterolemia, unspecified; I10 Essential (primary) hypertension; J44.9 Chronic obstructive pulmonary disease, unspecified; E03.9 Hypothyroidism, unspecified; E78.5 Hyperlipidemia, unspecified; M17.0 Bilateral primary osteoarthritis of knee; F41.0 Panic disorder [episodic paroxysmal anxiety]; I87.8 Other specified disorders of veins; E89.2 Postprocedural hypoparathyroidism; Z83.3 Family history of diabetes mellitus; Z86.718 Personal history of other venous thrombosis and embolism; Z88.7 Allergy status to serum and vaccine; Z79.01 Long term (current) use of anticoagulants
CPT/HCPCS: 36415; 36600; 71045; 71046; 80048; 80053; 80202; 82565; 82803; 83605; 83880; 84484; 85025; 85610; 85730; 86140; 87040; 87070; 87077; 87186; 87205; 87640; 87641; 93005; 94640; 94660; 94762; 99284; A9270-GY; G8978-GP-CJ; G8979-GP-CI; J0690; J1885; J2543; J2920; J2930; J3370; J3490

== ENCOUNTER 2019-05-14 21:46 | Emergency (ER) | payer MEDICARE, MEDICAID ==
--- NOTE | 2019-05-14 23:37 | ED ---
Lower Extremity - HPI Summary HPI Summary: Patient is a 68 y/o F presenting to [facility] with complaints BLE edema, redness, and drainage. Sx have been present for the past few days. Drainage from feet is described to be a clear fluid. She notes Hx of BLE edema and states that she is borderline diabetic. Patient is on Warfarin, Rispiradol, Synthroid. On triage, pain is denied, nothing is noted to aggravate/alleviate Sx. Home medications and allergies are reviewed. - History of Current Complaint Chief Complaint: EDExtremityLower Stated Complaint: INFECTED FOOT PER PT Time Seen by Provider: 05/14/19 23:36 Hx Obtained From: Patient Onset of Pain: Days, Prior to Arrival Onset/Duration: Days Severity Currently: None Pain Intensity: 0 Pain Scale Used: 0-10 Numeric Timing: Constant, Lasting Days Location: Is Discrete @ - BLE Associated Signs And Symptoms: Positive: Swelling - BLE, Redness - BLE, Other - drainage from BLE Aggravating Factor(s): Nothing Alleviating Factor(s): Nothing - Allergies/Home Medications Allergies/Adverse Reactions: Allergies Allergy/AdvReac Type Severity Reaction Status Date / Time Tetanus Vaccines and Toxoid Allergy Swelling Verified 05/14/19 23:50 PMH/Surg Hx/FS Hx/Imm Hx Endocrine/Hematology History: Reports: Hx Anticoagulant Therapy, Hx Diabetes, Hx Thyroid Disease Cardiovascular History: Reports: Hx Deep Vein Thrombosis, Hx Hypercholesterolemia, Hx Hypertension Denies: Hx Pacemaker/ICD Respiratory History: Denies: Hx Asthma Musculoskeletal History: Reports: Hx Arthritis - knees Denies: Hx Osteoporosis Sensory History: Reports: Hx Contacts or Glasses - Reading Denies: Hx Hearing Aid Opthamlomology History: Reports: Hx Contacts or Glasses - Reading Neurological History: Reports: Other Neuro Impairments/Disorders - Lack of coordination nfrom childhood Psychiatric History: Reports: Hx Anxiety, Hx Panic Disorder - Cancer History Hx Chemotherapy: No Hx Radiation Therapy: No - Surgical History Surgery Procedure, Year, and Place: PARATHYROIDECTOMY/T&A Infectious Disease History: No Infectious Disease History: Denies: Traveled Outside the [place] in Last 30 Days - Family History Known Family History: Positive: Diabetes - Social History Alcohol Use: None Substance Use Type: Reports: None Smoking Status (MU): Never Smoked Tobacco Review of Systems Negative: Fever - on vitals, temp is 99.3 F Positive: Edema - BLE Skin: Other - positive - BLE redness and drainage All Other Systems Reviewed And Are Negative: Yes Physical Exam - Summary Physical Exam Summary: Appearance: Well-appearing, Morbidly obese, lying in bed comfortably Skin: Warm, dry, no obvious rash; mild erythema of the dorsum of both feet, no definite cellulitic changes. There is oozing of clear fluid from legs. Hygiene of feet is poor. Eyes: sclera anicteric, no conjunctival pallor ENT: mucous membranes moist, pharynx appears normal Neck: Supple, nontender Respiratory: Clear to auscultation, no signs of respiratory distress Cardiovascular: Normal S1, S2. No murmurs. Normal distal pulses in tibial and radial bilaterally. Abdomen: Soft, nontender, normal active bowel sounds present Musculoskeletal: BLE chronic lymphedematous changes. Strength/ROM Intact Neurological: A&Ox3, awake and alert, mentation is normal, speech is fluent and appropriate Psychiatric: affect is normal, does not appear anxious or depressed Triage Information Reviewed: Yes Vital Signs On Initial Exam: Initial Vitals Temp Pulse Resp BP Pulse Ox 99.3 F 91 24 167/85 90 05/14/19 21:48 05/14/19 21:48 05/14/19 21:48 05/14/19 21:48 05/14/19 21:48 Vital Signs Reviewed: Yes Diagnostics - Vital Signs Vital Signs Temp Pulse Resp BP Pulse Ox 05/14/19 21:48 99.3 F 91 24 167/85 90 - Laboratory Lab Statement: Any lab studies that have been ordered have been reviewed, and results considered in the medical decision making process. Lower Extremity Course/Dx - Course Course Of Treatment: Patient is a 68 y/o F presenting to [facility] with complaints BLE edema, redness, and drainage. Sx have been present for the past few days. Drainage from feet is described to be a clear fluid. She notes Hx of BLE edema and states that she is borderline diabetic. Patient is on Warfarin, Rispiradol, Synthroid. Patient is morbidly obese. There is mild erythema of the dorsum of both feet, no definite cellulitic changes. There is oozing of clear fluid from legs. Hygiene of feet is poor. BLE chronic lymphedematous changes noted. Patient was prescribed lasix, advised to soak feet, to elevate legs, and to follow up with PCP. - Diagnoses Provider Diagnoses: Lymphedema Discharge ED - Sign-Out/Discharge Documenting (check all that apply): Patient Departure - discharge Patient Received Moderate/Deep Sedation with Procedure: No - Discharge Plan Condition: Good Disposition: HOME Prescriptions: Furosemide TAB* [Lasix TAB*] 20 mg PO DAILY #14 tab Patient Education Materials: Lymphedema (ED) Referrals: Deyanira Calero MD [Primary Care Provider] - Additional Instructions: I do not see any definite infection right now. I do want you to soak the feet in cool water twice a day to see if you can get them auto cleaner, especially around the toes. The cool water should help somewhat with the swelling also. Keep the legs elevated as much as you can, ideally above the level of your heart. Take the diuretic once a day. See if you can check in with Dr. Calero towards the end of the week so she can see how this is coming along. - Billing Disposition and Condition Condition: GOOD Disposition: Home - Attestation Statements Document Initiated by Josafat: Yes Documenting Carinaibe: KAREN MACHADO Provider For Whom Josafat is Documenting (Include Credential): NURA SERNA MD Scribe Attestation: I, KAREN MACHADO, scribed for NURA SERNA MD on 05/15/19 at 0633. Scribe Documentation Reviewed: Yes Provider Attestation: The documentation as recorded by the KAREN giron accurately reflects the service I personally performed and the decisions made by me, NURA SERNA MD Status of Scropal Document: Viewed
[2019-05-15 00:36] VITALS: BP 189/121
== END 2019-05-15 00:36 | disposition home or self-care (01) ==
LOC: ED 21:46
DX: I89.0 Lymphedema, not elsewhere classified (principal); R60.0 Localized edema; Z86.718 Personal history of other venous thrombosis and embolism; F41.9 Anxiety disorder, unspecified; Z79.01 Long term (current) use of anticoagulants; E03.9 Hypothyroidism, unspecified; R73.03 Prediabetes
CPT/HCPCS: 99282

== ENCOUNTER 2021-11-07 16:00 | Inpatient (IN) ==
[2021-11-07] MEDS ORDERED: Ondansetron 4 mg VIAL 2 MG/ML 2 ml VIAL IV PRN (16:14)
[2021-11-07] MEDS ORDERED: Albuterol HFA INHALER 8 gm MDI INH PRN (16:17)
[2021-11-07] MEDS: Mometasone 220 MCG MDI INH SCH (20:39)
[2021-11-07] MEDS: Nystatin TOP POWDER 15 GM BTL TOPICAL SCH (21:32)
[2021-11-08] MEDS: Nystatin TOP POWDER 15 GM BTL TOPICAL SCH ×3 (09:55→21:18)
[2021-11-08] MEDS: Mometasone 220 MCG MDI INH SCH (19:49)
[2021-11-09] MEDS: Nystatin TOP POWDER 15 GM BTL TOPICAL SCH ×3 (09:51→20:18)
[2021-11-09] MEDS: Mometasone 220 MCG MDI INH SCH (19:56)
[2021-11-09] MEDS ORDERED: Polyethylene Glycol 3350 17 GM PACKET PO PRN (21:37)
[2021-11-10] MEDS: Nystatin TOP POWDER 15 GM BTL TOPICAL SCH ×3 (07:45→21:47)
[2021-11-10] MEDS: Mometasone 220 MCG MDI INH SCH (19:58)
[2021-11-11] MEDS: Nystatin TOP POWDER 15 GM BTL TOPICAL SCH ×2 (09:23→12:58)
[2021-11-11 11:26] VITALS: BP 110/61
== END 2021-11-11 13:05 | DRG 300 ==
LOC: SUATTDRO 16:00 → MED 16:00
PROVIDERS: ADMIT Internal Medicine; ATTEND Internal Medicine

== ENCOUNTER 2022-11-05 14:50 | Inpatient (IN) ==
[2022-11-05] MEDS ORDERED: NS 0.9% 1000 ml BAG 1,000 ML IV ONE ×2 (15:05→17:31)
[2022-11-05 15:28] LABS: ABS Lymphocytes 0.1 10^3/ul (1.0-4.8); ABS Monocytes 0.3 10^3/ul (0-0.8); ABS Neutrophils 10.1 10^3/ul (1.5-7.7); Hematocrit 41 % (35-47); Hemoglobin 13.2 g/dL (12.0-16.0); Mean Corpuscular HGB Conc 32 g/dL (31-36); Mean Corpuscular Hemoglobin 28 pg (27-31); Mean Corpuscular Volume 87 fL (80-97); Mean Platelet Volume 7.6 fL (7.4-10.4); Platelet Count 250 10^3/uL (150-450); Red Blood Count 4.69 10^6 /uL (3.70-4.87); Red Cell Distribution Width 18 % (10-15); White Blood Count 10.5 10^3/uL (3.5-10.8)
[2022-11-05] MEDS ORDERED: Piperacillin/Tazobac ADVAN 3.375 GM in NS 0.9% 100 ml BAG 100 ML IV ONE (15:32)
[2022-11-05 15:46] LABS: Activated Partial Thrombo Time 33.9 seconds (26.0-38.0); INR 1.83 (0.88-1.18)
[2022-11-05 16:11] LABS: Albumin 4.3 g/dL (3.2-5.2); Albumin/Globulin Ratio 1.7 (1-3); C Reactive Protein 27.16 mg/L (<8.01); Calcium 9.5 mg/dL (8.6-10.3); Creatinine, Serum 0.95 mg/dL (0.51-0.95); Globulin 2.6 g/dL (2-4); Potassium 3.8 mmol/L (3.5-5.0); Total Bilirubin 1.1 mg/dL (0.2-1.0); Total Protein 6.9 g/dL (6.4-8.9); eGFR CKD-EPI 64.1 (>60)
[2022-11-05 16:15] LABS: Urine Appearance Cloudy; Urine Bilirubin Negative (Negative); Urine Blood 1+ (Negative); Urine Color Yellow; Urine Glucose Negative (Negative); Urine Ketones Negative (Negative); Urine Nitrite Positive (Negative); Urine Protein Negative (Negative); Urine Specific Gravity 1.019 (1.002-1.030); Urine Urobilinogen Negative (Negative)
[2022-11-05 16:35] LABS: Urine Bacteria Absent (Absent); Urine Red Blood Cell 2+(6-10/hpf) (Absent); Urine Squamous Epithelial Cell Present (Absent); Urine Transitional Epithelial Present (Absent); Urine White Blood Cell 3+(>20/hpf) (Absent)
[2022-11-05 16:54] LABS: High Sensitivity Troponin 1 Hr 42 pg/mL (<15)
[2022-11-05] MEDS ORDERED: Polyethylene Glycol 3350 17 GM PACKET PO PRN (17:52)
[2022-11-05] MEDS ORDERED: Zosyn per Pharmacy NOTE FOLLOW UP SCH (18:00)
[2022-11-05] MEDS ORDERED: ZOSYN 3.375 GM Q8H per EXTENDED INFUSION IV SCH (20:00)
[2022-11-05] MEDS: Nystatin TOP POWDER 15 GM BTL TOPICAL SCH (22:47)
[2022-11-05] MEDS ORDERED: Iodixanol (CONTRAST) 320 MG/ML 100 ML SDV IV ONE (23:09)
[2022-11-06] MEDS: ZOSYN 3.375 GM Q8H per EXTENDED INFUSION IV SCH ×2 (01:31→10:10)
[2022-11-06] MEDS: Nystatin TOP POWDER 15 GM BTL TOPICAL SCH ×2 (08:08→22:21)
[2022-11-06 14:04] LABS: ABS Eosinophils 0.1 10^3/ul (0-0.6); ABS Lymphocytes 0.5 10^3/ul (1.0-4.8); ABS Monocytes 0.9 10^3/ul (0-0.8); ABS Neutrophils 14.9 10^3/ul (1.5-7.7); Eosinophil % 0.7 %; Hematocrit 34 % (35-47); Hemoglobin 10.9 g/dL (12.0-16.0); Lymphocyte % 3.3 %; Mean Corpuscular HGB Conc 32 g/dL (31-36); Mean Corpuscular Hemoglobin 28 pg (27-31); Mean Corpuscular Volume 88 fL (80-97); Mean Platelet Volume 7.8 fL (7.4-10.4); Platelet Count 190 10^3/uL (150-450); Red Blood Count 3.91 10^6 /uL (3.70-4.87); Red Cell Distribution Width 18 % (10-15); White Blood Count 16.5 10^3/uL (3.5-10.8)
[2022-11-06 14:14] LABS: Calcium 8.4 mg/dL (8.6-10.3); Creatinine, Serum 1.01 mg/dL (0.51-0.95); Magnesium 1.9 mg/dL (1.9-2.7); Potassium 3.7 mmol/L (3.5-5.0); eGFR CKD-EPI 59.5 (>60)
[2022-11-06 14:28] LABS: TSH Ultra Thyroid Stim Horm 2.93 mcIU/mL (0.34-5.60)
[2022-11-06] MEDS ORDERED: Sulfur Hexaflouride MICROSPHR 25 MG VIAL ONE (15:34)
[2022-11-06] MEDS ORDERED: Furosemide 40 mg/4 ml IV VIAL IV ONE (16:59)
[2022-11-06] MEDS ORDERED: ZOSYN 3.375 GM Q8H per EXTENDED INFUSION IV SCH (18:00)
[2022-11-06] MEDS: Cefepime 2 GM in Dextrose 2 GM/50 ML BAG IV SCH (22:20)
[2022-11-07] MEDS: Cefepime 2 GM in Dextrose 2 GM/50 ML BAG IV SCH ×2 (06:09→17:55)
[2022-11-07 07:28] LABS: ABS Eosinophils 0.2 10^3/ul (0-0.6); ABS Lymphocytes 0.6 10^3/ul (1.0-4.8); ABS Monocytes 0.8 10^3/ul (0-0.8); ABS Neutrophils 12.3 10^3/ul (1.5-7.7); Eosinophil % 1.3 %; Hematocrit 30 % (35-47); Lymphocyte % 4.3 %; Mean Corpuscular HGB Conc 34 g/dL (31-36); Mean Corpuscular Hemoglobin 29 pg (27-31); Mean Corpuscular Volume 87 fL (80-97); Mean Platelet Volume 8.1 fL (7.4-10.4); Platelet Count 161 10^3/uL (150-450); Red Blood Count 3.43 10^6 /uL (3.70-4.87); Red Cell Distribution Width 18 % (10-15)
[2022-11-07 07:50] LABS: Calcium 8.1 mg/dL (8.6-10.3); Creatinine, Serum 0.89 mg/dL (0.51-0.95); Potassium 3.8 mmol/L (3.5-5.0); eGFR CKD-EPI 69.3 (>60)
[2022-11-07] MEDS: Nystatin TOP POWDER 15 GM BTL TOPICAL SCH ×2 (09:10→21:33)
[2022-11-08] MEDS: Cefepime 2 GM in Dextrose 2 GM/50 ML BAG IV SCH ×2 (04:55→17:30)
[2022-11-08 07:00] LABS: ABS Eosinophils 0.3 10^3/ul (0-0.6); ABS Lymphocytes 0.7 10^3/ul (1.0-4.8); ABS Monocytes 0.6 10^3/ul (0-0.8); ABS Neutrophils 8.9 10^3/ul (1.5-7.7); Eosinophil % 3.3 %; Hematocrit 32 % (35-47); Hemoglobin 10.2 g/dL (12.0-16.0); Lymphocyte % 6.8 %; Mean Corpuscular HGB Conc 32 g/dL (31-36); Mean Corpuscular Hemoglobin 28 pg (27-31); Mean Corpuscular Volume 88 fL (80-97); Mean Platelet Volume 7.7 fL (7.4-10.4); Nucleated Red Blood Cells % 0.1; Platelet Count 202 10^3/uL (150-450); Red Blood Count 3.65 10^6 /uL (3.70-4.87); Red Cell Distribution Width 17 % (10-15); White Blood Count 10.5 10^3/uL (3.5-10.8)
[2022-11-08 07:28] LABS: Calcium 8.5 mg/dL (8.6-10.3); Creatinine, Serum 0.67 mg/dL (0.51-0.95); Potassium 4.2 mmol/L (3.5-5.0); eGFR CKD-EPI 93.4 (>60)
[2022-11-08] MEDS: Nystatin TOP POWDER 15 GM BTL TOPICAL SCH ×2 (08:19→19:52)
[2022-11-09] MEDS: Cefepime 2 GM in Dextrose 2 GM/50 ML BAG IV SCH (05:47)
[2022-11-09] MEDS: Nystatin TOP POWDER 15 GM BTL TOPICAL SCH ×2 (08:34→23:44)
[2022-11-09] MEDS: cefTRIAXone 2 gm/50 mL D5W 2 GM/50 ML BAG IV SCH (18:00)
[2022-11-10] MEDS: Nystatin TOP POWDER 15 GM BTL TOPICAL SCH ×2 (09:59→22:40)
[2022-11-10] MEDS: cefTRIAXone 2 gm/50 mL D5W 2 GM/50 ML BAG IV SCH (18:35)
[2022-11-11] MEDS ORDERED: Amoxicillin/Clavul 500/125 TAB (Augmentin 500 mg tab) PO SCH (09:00)
[2022-11-11] MEDS: Nystatin TOP POWDER 15 GM BTL TOPICAL SCH (09:43)
[2022-11-11 13:22] LABS: Rapid COVID-19 Molecular Undetected (Undetected)
[2022-11-11 13:57] VITALS: BP 153/86
== END 2022-11-11 16:30 | DRG 871 ==
LOC: ED 14:50 → SUATTDRO 16:48 → EDHOLD 16:48 → MED 11-06 12:04
PROVIDERS: ADMIT Internal Medicine; ATTEND Internal Medicine

== ENCOUNTER 2023-08-23 12:26 | Inpatient (IN) ==
[2023-08-23] MEDS ORDERED: Albuterol/Ipratropium NEB.SOL (2.5/0.5 MG) 3 ML NEB.SOLN INH ONE (12:58)
[2023-08-23 13:20] LABS: ABS Basophils 0.1 10^3/uL (0.0-0.1); ABS Eosinophils 0.1 10^3/uL (0.0-0.5); ABS Lymphocytes 1.1 10^3/uL (1.0-4.8); ABS Monocytes 0.8 10^3/uL (0.0-0.9); ABS Neutrophils 5.9 10^3/uL (1.5-7.6); ABS Nucleated RBC 0.01 10^3/ul; Eosinophil % 1.2 %; Hematocrit 38.9 % (35-45); Lymphocyte % 14.2 %; Mean Corpuscular Hemoglobin 29.3 pg (27-33); Mean Corpuscular Hgb Conc 33.3 g/dL (31-36); Mean Corpuscular Volume 87.9 fL (80-97); Mean Platelet Volume 7.1 fL (7.5-11.2); Nucleated Red Blood Cells % 0.1 %/100WBC (0.0-0.8); Platelet Count 240 10^3/uL (150-450); Red Blood Count 4.43 10^6/uL (3.63-4.92); Red Cell Distribution Width 17.1 % (12-17); White Blood Count 7.9 10^3/uL (3.8-11.8)
[2023-08-23 13:37] LABS: Albumin 4.2 g/dL (3.2-5.2); Albumin/Globulin Ratio 1.4 (1-3); Calcium 9.2 mg/dL (8.6-10.3); Creatinine, Serum 0.78 mg/dL (0.51-0.95); Total Bilirubin 0.7 mg/dL (0.2-1.0); Total Protein 7.2 g/dL (6.4-8.9); eGFR CKD-EPI 80.6 (>60)
[2023-08-23] MEDS ORDERED: Furosemide 20 mg/2 ml IV VIAL IV SLOW PU ONE (13:56)
[2023-08-23] MEDS ORDERED: Furosemide 40 mg/4 ml IV VIAL IV SLOW PU ONE (16:43)
[2023-08-23] MEDS: Nystatin TOP POWDER 15 GM BTL TOPICAL SCH (23:03)
[2023-08-24 08:21] LABS: Calcium 9.1 mg/dL (8.6-10.3); Creatinine, Serum 0.75 mg/dL (0.51-0.95); Potassium 3.7 mmol/L (3.5-5.0); eGFR CKD-EPI 84.5 (>60)
[2023-08-24] MEDS: Nystatin TOP POWDER 15 GM BTL TOPICAL SCH ×2 (08:44→20:50)
[2023-08-24] MEDS ORDERED: Potassium Chlor 20 meq TAB.ER PO ONE (10:05)
[2023-08-24] MEDS ORDERED: Furosemide 40 mg/4 ml IV VIAL IV ONE (10:06)
[2023-08-25 06:57] LABS: ABS Basophils 0.1 10^3/uL (0.0-0.1); ABS Eosinophils 0.2 10^3/uL (0.0-0.5); ABS Lymphocytes 1.3 10^3/uL (1.0-4.8); ABS Monocytes 0.9 10^3/uL (0.0-0.9); ABS Neutrophils 5.9 10^3/uL (1.5-7.6); ABS Nucleated RBC 0.02 10^3/ul; Eosinophil % 2.5 %; Hematocrit 35.9 % (35-45); Lymphocyte % 15.4 %; Mean Corpuscular Hemoglobin 29.3 pg (27-33); Mean Corpuscular Hgb Conc 33.5 g/dL (31-36); Mean Corpuscular Volume 87.3 fL (80-97); Mean Platelet Volume 7.3 fL (7.5-11.2); Nucleated Red Blood Cells % 0.2 %/100WBC (0.0-0.8); Platelet Count 216 10^3/uL (150-450); Red Blood Count 4.11 10^6/uL (3.63-4.92); Red Cell Distribution Width 17.2 % (12-17); White Blood Count 8.4 10^3/uL (3.8-11.8)
[2023-08-25 07:13] LABS: Creatinine, Serum 0.84 mg/dL (0.51-0.95); Potassium 4.2 mmol/L (3.5-5.0); eGFR CKD-EPI 73.8 (>60)
[2023-08-25] MEDS ORDERED: Furosemide 40 mg/4 ml IV VIAL IV ONE (07:56)
[2023-08-25] MEDS: Nystatin TOP POWDER 15 GM BTL TOPICAL SCH ×2 (08:18→21:36)
[2023-08-25] MEDS: Furosemide 40 mg/4 ml IV VIAL IV SCH (21:36)
[2023-08-26 07:06] LABS: Calcium 9.1 mg/dL (8.6-10.3); Creatinine, Serum 0.88 mg/dL (0.51-0.95); Potassium 4.1 mmol/L (3.5-5.0); eGFR CKD-EPI 69.8 (>60)
[2023-08-26] MEDS: Furosemide 40 mg/4 ml IV VIAL IV SCH ×2 (08:38→15:38)
[2023-08-26] MEDS: Nystatin TOP POWDER 15 GM BTL TOPICAL SCH ×2 (08:42→22:55)
[2023-08-27] MEDS: Furosemide 40 mg/4 ml IV VIAL IV SCH (06:31)
[2023-08-27] MEDS ORDERED: Bumetanide IV 0.25 MG/ML 4 ml VIAL (1 mg) IV SLOW PU ONE ×2 (10:08→10:13)
[2023-08-27] MEDS: Nystatin TOP POWDER 15 GM BTL TOPICAL SCH ×2 (10:48→20:38)
[2023-08-27] MEDS ORDERED: Bumetanide IV 0.25 MG/ML 4 ml VIAL (1 mg) IV SLOW PU SCH ×2 (15:00)
[2023-08-27 15:11] LABS: Creatinine, Serum 1.05 mg/dL (0.51-0.95); Potassium 3.9 mmol/L (3.5-5.0); eGFR CKD-EPI 56.5 (>60)
[2023-08-28] MEDS: Nystatin TOP POWDER 15 GM BTL TOPICAL SCH ×3 (02:05→20:16)
[2023-08-28 07:11] LABS: Albumin 4.5 g/dL (3.2-5.2); Albumin/Globulin Ratio 1.4 (1-3); Calcium 9.6 mg/dL (8.6-10.3); Creatinine, Serum 1.2 mg/dL (0.51-0.95); Globulin 3.3 g/dL (2-4); Potassium 3.1 mmol/L (3.5-5.0); Total Bilirubin 1.2 mg/dL (0.2-1.0); Total Protein 7.8 g/dL (6.4-8.9); eGFR CKD-EPI 48.1 (>60)
[2023-08-28] MEDS ORDERED: Potassium Chlor 20 meq TAB.ER PO SCH (09:00)
[2023-08-28] MEDS ORDERED: Bumetanide IV 0.25 MG/ML 4 ml VIAL (1 mg) IV SLOW PU SCH (11:00)
[2023-08-28 11:21] LABS: Magnesium 2.1 mg/dL (1.9-2.7)
[2023-08-28] MEDS: KCL 20 MEQ/100 ML IVPREMIX 20 MEQ/100 ML BAG IV SCH ×2 (12:47→14:56)
[2023-08-28 15:50] LABS: Calcium 9.8 mg/dL (8.6-10.3); Creatinine, Serum 1.32 mg/dL (0.51-0.95); Potassium 3.9 mmol/L (3.5-5.0); eGFR CKD-EPI 42.9 (>60)
[2023-08-29 07:12] LABS: Calcium 9.2 mg/dL (8.6-10.3); Creatinine, Serum 0.95 mg/dL (0.51-0.95); Magnesium 2.2 mg/dL (1.9-2.7); Potassium 3.2 mmol/L (3.5-5.0); eGFR CKD-EPI 63.7 (>60)
[2023-08-29] MEDS ORDERED: Potassium Chloride LIQUID 20 MEQ/15 ML LIQUID PO SCH (09:00)
[2023-08-29] MEDS: Nystatin TOP POWDER 15 GM BTL TOPICAL SCH ×2 (09:30→21:01)
[2023-08-29] MEDS ORDERED: Bumetanide IV 0.25 MG/ML 4 ml VIAL (1 mg) IV SLOW PU ONE (10:27)
[2023-08-29] MEDS: KCL 20 MEQ/100 ML IVPREMIX 20 MEQ/100 ML BAG IV SCH ×3 (11:02→16:51)
[2023-08-29] MEDS: Potassium Chloride LIQUID 20 MEQ/15 ML LIQUID PO ONE ×2 (11:02→11:04)
[2023-08-29 14:29] LABS: Calcium 9.6 mg/dL (8.6-10.3); Creatinine, Serum 1.08 mg/dL (0.51-0.95); Potassium 3.9 mmol/L (3.5-5.0); eGFR CKD-EPI 54.6 (>60)
[2023-08-30 06:35] LABS: ABS Basophils 0.1 10^3/uL (0.0-0.1); ABS Eosinophils 0.2 10^3/uL (0.0-0.5); ABS Lymphocytes 1.2 10^3/uL (1.0-4.8); ABS Monocytes 0.9 10^3/uL (0.0-0.9); ABS Neutrophils 6.3 10^3/uL (1.5-7.6); ABS Nucleated RBC 0.04 10^3/ul; Eosinophil % 2.2 %; Hematocrit 35.7 % (35-45); Hemoglobin 12.1 g/dL (11.5-14.3); Lymphocyte % 14.2 %; Mean Corpuscular Hemoglobin 29.5 pg (27-33); Mean Platelet Volume 7.9 fL (7.5-11.2); Nucleated Red Blood Cells % 0.4 %/100WBC (0.0-0.8); Platelet Count 247 10^3/uL (150-450); Red Cell Distribution Width 16.7 % (12-17); White Blood Count 8.7 10^3/uL (3.8-11.8)
[2023-08-30 08:01] LABS: Creatinine, Serum 0.9 mg/dL (0.51-0.95); Potassium 3.6 mmol/L (3.5-5.0); eGFR CKD-EPI 67.9 (>60)
[2023-08-30] MEDS: Nystatin TOP POWDER 15 GM BTL TOPICAL SCH ×2 (09:04→20:44)
[2023-08-30] MEDS ORDERED: Empagliflozin 25 MG TAB PO ONE (09:38)
[2023-08-30] MEDS ORDERED: Bumetanide IV 0.25 MG/ML 4 ml VIAL (1 mg) IV SLOW PU ONE (11:00)
[2023-08-30 14:39] LABS: Calcium 9.5 mg/dL (8.6-10.3); Creatinine, Serum 0.91 mg/dL (0.51-0.95); Potassium 3.3 mmol/L (3.5-5.0)
[2023-08-30] MEDS ORDERED: Potassium Chloride LIQUID 20 MEQ/15 ML LIQUID PO ONE (15:36)
[2023-08-30] MEDS ORDERED: Potassium Chlor 20 meq TAB.ER PO ONE (20:00)
[2023-08-31] MEDS ORDERED: Bumetanide IV 0.25 MG/ML 4 ml VIAL (1 mg) IV SLOW PU ONE ×2 (06:00→07:43)
[2023-08-31 06:45] LABS: Creatinine, Serum 0.84 mg/dL (0.51-0.95); Potassium 3.5 mmol/L (3.5-5.0); eGFR CKD-EPI 73.8 (>60)
[2023-08-31] MEDS ORDERED: Potassium Chloride LIQUID 20 MEQ/15 ML LIQUID PO ONE (07:40)
[2023-08-31] MEDS: Nystatin TOP POWDER 15 GM BTL TOPICAL SCH (07:53)
[2023-08-31] MEDS ORDERED: Empagliflozin 25 MG TAB PO SCH (09:00)
[2023-08-31 10:09] LABS: Rapid COVID-19 Molecular Undetected (Undetected)
[2023-08-31 12:17] VITALS: BP 125/54
== END 2023-08-31 12:58 | DRG 291 ==
LOC: EDHOLD 12:26 → ED 12:26 → SUATTDRO 16:02 → MEDTELE 17:38 → SUATTDRO 08-25 10:35
PROVIDERS: ADMIT Internal Medicine; ATTEND Family Medicine